=== PATIENT | female | born 1980 | race Two or more races ===

== ENCOUNTER 2022-03-04 14:30 | Outpatient (REF) | payer MEDICARE, MEDICAID, SELFPAY ==
[2022-03-04 14:45] LABS: MANUAL DIFF FLAG NO
[2022-03-04 16:04] LABS: Basophils Percent Auto 0.3 % (0-2); Eosinophils Absolute Auto 0.2 X10*3/uL (0.0-0.4); Eosinophils Percent Auto 2.2 % (0-4); Hematocrit 36.9 % (37.0-47.0); Hemoglobin 12.6 g/dl (12.0-16.0); Imm Gran Abs Auto 0.05 X10*3/uL (0.00-0.03); Imm Gran Pct Auto 0.5 % (0.0-0.4); Lymphocytes Absolute Auto 3.2 X10*3/uL (1.2-4.9); Lymphocytes Percent Auto 32.7 % (20-40); Mean Corpuscular HGB Conc 34.1 g/dl (31.0-35.0); Mean Corpuscular Hemoglobin 31.6 pg (27.0-33.0); Mean Corpuscular Volume 92.5 fL (80.0-98.0); Mean Platelet Volume 11.1 fL (9.4-12.3); Monocytes Absolute Auto 0.6 X10*3/uL (0.1-1.2); Monocytes Percent Auto 6.1 % (2-11); Neutrophils Absolute Auto 5.7 x10*3/uL (2.0-8.3); Neutrophils Percent Auto 58.2 % (45-73); Platelet Count 227 X10*3/uL (160-400); Red Blood Count 3.99 X10*6/uL (4.20-5.50); Red Cell Distribution Width 14.1 % (11.0-16.0); White Blood Count 9.8 X10*3/uL (4.8-10.8)
[2022-03-04 16:23] LABS: Alanine Aminotransferase 13 U/L (0-31); Albumin Level 3.9 g/dL (3.5-5.0); Alkaline Phosphatase 60 U/L (39-117); Anion Gap 9 (12-20); Aspartate Amino Transferase 11 U/L (5-31); Bilirubin Total 0.5 mg/dL (0.0-1.0); Blood Urea Nitrogen 12 mg/dL (9-16); Calcium 8.4 mg/dL (8.4-10.2); Carbon Dioxide 26 mmol/L (22-29); Chloride 106 mmol/L (96-108); Cholesterol 113 mg/dL; Estimated Glomerular Filt Rate > 60; Glucose Fasting 98 mg/dL (60-99); HDL Cholesterol 44 mg/dL; LDL Cholesterol Calculated 58 mg/dl; Potassium 4.4 mmol/L (3.3-5.1); Sodium 137 mmol/L (135-145); Total Protein 6.6 g/dL (6.5-8.0); Triglycerides 56 mg/dL
[2022-03-04 16:36] LABS: TSH reflex Free T4 1.62 uIU/mL (0.32-4.0)
== END 2022-03-04 14:31 | disposition home or self-care (01) ==
LOC: HO.LAB 14:30
PROVIDERS: PCP Internal Medicine; Visit Provider Internal Medicine
DX: Z00.00 Encounter for general adult medical examination without abnormal findings (principal); E55.9 Vitamin D deficiency, unspecified
CPT/HCPCS: 36415; 80053; 80061; 82306; 84443; 85025

== ENCOUNTER 2023-03-29 16:12 | Outpatient (AMB) | payer MEDICARE, MEDICAID, SELFPAY ==
[2023-03-29 16:13] VITALS: BP 130/82; PULSE 102; O2SAT 100; BMI 28.9
--- NOTE | 2023-03-29 16:13 | A.OFFPC_ITS ---
Vital Signs 03/29/23 16:13 Height 5 ft 1 in Weight 153 lb BMI 28.9 BP 130/82 Blood Pressure Location Lt brachial Position Sitting Pulse 102 H Pulse Source Pulse Oximeter Temp Source Skin Pulse Oximetry (%) 100 Oxygen Delivery Method Room Air Intake Visit Reasons: migraine, GERD Intake Note: Patient is here to follow up Waitstaff Required: No Allergies sulfamethoxazole [From BACTRIM] Allergy (Severe, Verified 03/29/23 16:22) SHORTNESS OF BREATH trimethoprim [From BACTRIM] Allergy (Severe, Verified 03/29/23 16:22) SHORTNESS OF BREATH cephalexin [From KEFLEX] Allergy (Intermediate, Verified 03/29/23 16:22) SHORTNESS OF BREATH ibuprofen [From MOTRIN] Allergy (Unknown, Verified 03/29/23 16:22) loopy feeling; giddiness Sulfa (Sulfonamide Antibiotics) Allergy (Unknown, Verified 03/29/23 16:22) anaphylaxis, rash, itchy, SOB morphine [MORPHINE] Adverse Reaction (Unknown, Verified 03/29/23 16:22) rash; sensation of giddiness; loopy feeling topiramate Adverse Reaction (Unknown, Verified 03/29/23 16:22) hallucination Medication List - Last Reconciled 03/29/23 by LINDA Vizcaino albuterol sulfate 90 mcg/actuation (Ventolin HFA) 2 puffs inhalation Q6-8H PRN 30 days budesonide-formoterol 80-4.5 mcg/actuation (Symbicort) 2 puffs inhalation BID 30 days doxepin 10 mg PO BEDTIME 30 days ipratropium-albuterol 0.5 mg-3 mg(2.5 mg base)/3 mL 3 mL inhalation Q6-8H PRN 30 days loratadine 10 mg PO DAILY PRN 30 days miscellaneous medical supply 1 ea miscellaneous DAILY nortriptyline 10 mg PO BEDTIME 30 days omeprazole 20 mg PO DAILY 30 days ondansetron 4 mg PO Q8H PRN 15 days tramadol 50 mg PO QID PRN 30 days Tobacco use date assessed: 03/29/23 HPI migraine, GERD HPI Details Patient is a 43-year-old female who presents today for a routine follow-up. Patient of Dr. Liu. Medical history significant for GERD, migraine, anxiety, asthma, insomnia, cervical disc disease. Patient reports that she is compliant with medications and denies side effects. Migraines are stable with current treatment, does not remember when the last time she had her migraine. Patient reports right-sided abdominal pain for the past couple months now. She reports intermittent right upper quadrant pain that radiates to her back and to her right lower quadrant, pain is not related to foods, she reports bad acid reflux which is not resolved with omeprazole, acid reflux makes her vomit sometime. She denies urinary symptoms. She reports history of kidney stones. She did have gallbladder removed in the past. Patient denies shortness of breath or chest pain. FORMERLY [facility] Medical History Allergic rhinitis Anxiety Asthma Cervical disc disease GERD (gastroesophageal reflux disease) Insomnia Migraine Obesity (BMI 30-39.9) Overweight (BMI 25.0-29.9) Scoliosis Surgical History History of incision and drainage History of laparoscopic cholecystectomy (~08/24/17) History of tubal ligation Hx of colonoscopy (~10/26/16) Family History Father No problems noted. Mother Hypertension Breast cancer Maternal Aunt Breast cancer Sister Breast cancer Social History Housing: House Alcohol intake: current Alcohol intake frequency: holidays/special occasions only Patient Tobacco Use Status: Current someday Tobacco user Cigarettes Per Day: 2 e-Cigarette/Vaping Use: Former Use service: No Current occupational status: disabled Cognitive needs: No Hearing needs: No Vision needs: No Questionnaire Thrive Questionnaire Date Thrive assessed: 01/06/23 AUDIT C Alcohol Use Questionnaire (AUDIT-C) 1. How often do you have a drink containing alcohol?: Never Total Score: 0 Score Reviewed/Action Taken: No JEROME-7 AMB Questionnaire JEROME-7 Date JEROME - 7 assessed: 01/06/23 Source: Developed by Drs. Uziel Raza, Loretta Julien, Chauncey Velasco and colleagues, with an educational yumiko from [employer]. Review of Systems Const Denies body aches, Denies chills, Denies fever(s) and Denies headache(s) Eyes Denies change in vision ENT Denies dizziness, Denies otalgia, Denies headache(s), Denies nasal discharge, Denies sinus pain and Denies sore throat Card Denies chest pain, Denies edema, Denies lightheadedness and Denies dyspnea Resp Denies cough and Denies dyspnea GI Reports as per HPI, Reports abdominal pain, Denies constipation, Reports heartburn, Denies diarrhea, Denies nausea and Denies vomiting Denies dysuria and Reports flank pain (Right) Musc Denies myalgias, Denies arthralgias and Denies joint swelling Skin/Breast Denies rash Neuro Denies dizziness and Denies headache(s) Physical exam (Primary Care) Vital Signs: Last Vital Signs Pulse 102 H 03/29/23 16:13 BP 130/82 03/29/23 16:13 Pulse Ox 100 03/29/23 16:13 Oxygen Delivery Method Room Air 03/29/23 16:13 BMI result Body Mass Index 28.9 Tobacco/Smoking Status: Tobacco use Status Tobacco use date assessed 03/29/23 03/29/23 16:18 Patient Tobacco Use Status Current someday Tobacco 03/29/23 16:18 e-Cigarette/Vaping Use Former Use 03/29/23 16:18 Thrive Assessment: Date of Thrive Assessment Date Thrive assessed 01/06/23 03/29/23 16:18 Const General: cooperative and no acute distress Orientation/consciousness: patient oriented x3 HENMT Head: Yes normocephalic and Yes atraumatic Ears: TM's normal bilaterally Face and sinus: Yes sinuses nontender Mouth: oropharynx normal and moist mucous membranes Throat: Yes posterior oropharynx normal Eyes General: appearance normal, both eyes and all related structures Neck Neck: Yes normal visual inspection and Yes full ROM Resp Effort & Inspection: normal respiratory effort and able to speak in complete sentences Auscultation: clear to auscultation bilaterally, no crackles, no rales, no rhonchi and no wheezes Cardio Rate: regular rate Rhythm: regular rhythm Heart sounds: S1 normal heart sound present and S2 normal heart sound present GI Palpation (GI): Soft to palpation, not firm, Tenderness to palpation present (GI) in the epigastrum and in the RUQ; with no rebound tenderness, no guarding, not rigid and no hepatosplenomegaly Auscultation: normal bowel sounds General: No CVA tenderness Back/Spine/Pelvis Back: No CVA tenderness Thoracic/Lumbar Spine: paraspinal muscle tenderness (Right lumbar aspect), No thoracic spinal tenderness and No lumbar spinal tenderness Skin General skin exam: no rashes or lesions noted Neuro General: patient oriented x3 Gait exam (Neuro): Normal gait present Extrem General: Yes full ROM and No edema Assessment and Plan Assessment & Plan (1) Right sided abdominal pain: Code(s): R10.9 - Unspecified abdominal pain Plan: Patient report right upper quadrant/epigastric pain that radiate to her back and right lower quadrant for the past couple months, physical exam revealed right upper quadrant tenderness and epigastric tenderness, no rebound tenderness. Patient reports history of kidney stones in the past. She denies any urinary symptoms. She did have gallbladder removed in the past. Will obtain blood work and ultrasound of her abdomen. Signs and symptoms reviewed when to notify provider or go to the emergency department. Patient agreed with the plan. (2) Insomnia: Code(s): G47.00 - Insomnia, unspecified Qualifiers: Insomnia type: unspecified Qualified Code(s): G47.00 - Insomnia, unspecified Plan: Reinforced sleep hygiene Stable with doxepin at bedtime (3) Asthma: Code(s): J45.909 - Unspecified asthma, uncomplicated Qualifiers: Asthma severity: moderate Asthma persistence: persistent Asthma complication type: uncomplicated Qualified Code(s): J45.40 - Moderate persistent asthma, uncomplicated Plan: Stable Continue current inhalers as prescribed (4) Migraine: Code(s): G43.909 - Migraine, unspecified, not intractable, without status migrainosus Qualifiers: Migraine type: unspecified Status migrainosus presence: without status migrainosus Intractability: not intractable Qualified Code(s): G43.909 - M igraine, unspecified, not intractable, without status migrainosus Plan: Stable with nortriptyline 10 mg at bedtime, Zofran every 8 hours p.r.n. Patient does not remember when the last time she had migraine headache (5) Gastroesophageal reflux disease: Code(s): K21.9 - Gastro-esophageal reflux disease without esophagitis Qualifiers: Esophagitis presence: without esophagitis Qualified Code(s): K21.9 - Gastro-esophageal reflux disease without esophagitis Plan: Increase omeprazole to 1 capsule b.i.d. Avoid GERD trigger foods Do not lay down 2-3 hours after evening meal Will refer to GI for an evaluation and treatment Patient agreed with the plan Plan Follow-up with PCP in 3 months or sooner as needed Orders: Orders Comprehensive Met. Panel Today R10.9 - Unspecified abdominal pain Complete Blood Count Auto Diff Today R10.9 - Unspecified abdominal pain US abdomen complete Today R10.9 - Unspecified abdominal pain Referrals Gastroenterology Referral K21.9 - Gastro-esophageal reflux disease without esophagitis Medications: Changed From omeprazole 20 mg PO DAILY 30 days 30 caps 1RF K21.9 - Gastro-esophageal reflux disease without esophagitis To omeprazole 20 mg PO BID 60 days 120 caps 1RF K21.9 - Gastro-esophageal reflux disease without esophagitis Coding Level of Care Code Est Pt Level 4 (85864) Diagnoses Right sided abdominal pain R10.9 Insomnia G47.00 Insomnia type: unspecified Asthma J45.40 Asthma severity: moderate Asthma persistence: persistent Asthma complication type: uncomplicated Migraine G43.909 Migraine type: unspecified Status migrainosus presence: without status migrainosus Intractability: not intractable Gastroesophageal reflux disease K21.9 Esophagitis presence: without esophagitis
== END 2023-03-29 16:37 | disposition home or self-care (01) ==
PROVIDERS: PCP Internal Medicine; Visit Provider Nurse Practitioner Family
DX: J45.40 Moderate persistent asthma, uncomplicated (principal); G43.909 Migraine, unspecified, not intractable, without status migrainosus; K21.9 Gastro-esophageal reflux disease without esophagitis; G47.00 Insomnia, unspecified; R10.9 Unspecified abdominal pain
CPT/HCPCS: 99214

== ENCOUNTER 2023-07-20 14:22 | Outpatient (AMB) | payer MEDICARE, MEDICAID, SELFPAY ==
--- NOTE | 2023-07-20 14:30 | MHC.OFFVIS ---
Intake Vital Signs 07/20/23 14:43 Height 5 ft 1 in Weight 153 lb 6 oz BMI 29.0 BP 131/79 Blood Pressure Location Lt brachial Position Sitting Pulse 80 Intake Visit Reasons: bilateral breast pain, ? mastitis Intake Note: Patient is seen in office for evaluation and treatment of bilateral breast pain possible mastitis. Patient c/o: right side is more painful, onset one month, unable to lay down due to pain, has tried warm compress, admits to redness, discharge rt breast, feel hard to the touch Stockroom Keeper Required: No Accompanied by: Self / Same As Patient Allergies sulfamethoxazole [From BACTRIM] Allergy (Severe, Verified 07/20/23 14:35) SHORTNESS OF BREATH trimethoprim [From BACTRIM] Allergy (Severe, Verified 07/20/23 14:35) SHORTNESS OF BREATH cephalexin [From KEFLEX] Allergy (Intermediate, Verified 07/20/23 14:35) SHORTNESS OF BREATH ibuprofen [From MOTRIN] Allergy (Unknown, Verified 07/20/23 14:35) loopy feeling; giddiness Sulfa (Sulfonamide Antibiotics) Allergy (Unknown, Verified 07/20/23 14:35) anaphylaxis, rash, itchy, SOB morphine [MORPHINE] Adverse Reaction (Unknown, Verified 07/20/23 14:35) rash; sensation of giddiness; loopy feeling topiramate Adverse Reaction (Unknown, Verified 07/20/23 14:35) hallucination HPI HPI Comments History of Present Illness Details 43-year-old female patient with a long history of bilateral breast pain presenting for evaluation of possible mastitis. She has a prior history of breast abscess and is concerned that the abscess is returning. Her family history is significant for her mother having breast cancer. She reports pain mainly around the nipples bilaterally. She denies any skin redness but does have occasional whitish discharge from the nipples. The pain increases when wearing her bra. She denies any fever or chills. She has not undergone mammography for several years due to the pain. FORMERLY [facility] Medical History Allergic rhinitis Obesity (BMI 30-39.9) Overweight (BMI 25.0-29.9) Insomnia Anxiety Migraine Asthma GERD (gastroesophageal reflux disease) Scoliosis Cervical disc disease Surgical History History of incision and drainage Hx of colonoscopy (~10/26/16) History of laparoscopic cholecystectomy (~08/24/17) History of tubal ligation Family History Father No problems noted. Mother Hypertension Breast cancer Maternal Aunt Breast cancer Sister Breast cancer Social History Housing: House Alcohol intake: current Alcohol intake frequency: holidays/special occasions only Patient Tobacco Use Status: Current someday Tobacco user Cigarettes Per Day: 2 e-Cigarette/Vaping Use: Former Use service: No Current occupational status: disabled Cognitive needs: No Hearing needs: No Vision needs: No Review of Systems Const All systems reviewed & are unremarkable except as noted in HPI and below Reports nipple discharge Skin/Breast Denies breast swelling, Denies breast skin changes, Reports breast pain, Denies breast mass, Reports nipple discharge and Denies erythema Physical Exam Vital Signs: Last Vital Signs Pulse 80 07/20/23 14:43 BP 131/79 07/20/23 14:43 BMI result Body Mass Index 29.0 Const General: comfortable Nutritional Appearance: well nourished Orientation/consciousness: patient oriented x3 Limitations: no limitations HEENT Head: Yes normocephalic and Yes atraumatic Ears: hearing grossly normal bilaterally Neck Neck: Yes normal visual inspection Chest Other: Left breast: No skin change, no nipple retraction, no nipple discharge, no palpable mass, no enlarged lymph nodes, tenderness throughout the breast but especially centrally around the nipple-areolar complex. Right breast: No skin change, no nipple retraction, no nipple discharge, no palpable mass, no enlarged lymph nodes, tenderness throughout the breast but especially centrally along the nipple-areolar complex Resp Effort & Inspection: normal respiratory effort, no audible wheezes, no cough and no respiratory distress GI Inspection: Yes normal to inspection Skin Other: Warm, dry, no rash Neuro General: patient oriented x3 Extrem General: Yes no clubbing, cyanosis or edema Assessment & Plan Assessment & Plan (1) Mastodynia: Code(s): N64.4 - Mastodynia (2) Family history of breast cancer: Code(s): Z80.3 - Family history of malignant neoplasm of breast Plan Patient with persistent history of breast pain bilaterally which is affecting her daily life style. Examination reveals no suspicious findings in either breast. She is due for mammography and I therefore recommended a diagnostic mammogram and bilateral ultrasounds. I recommended starting low-dose tamoxifen for approximately 3 months after which the medication will be stopped. I recommended she return following the mammogram and ultrasound studies to review the results and evaluate the response to the tamoxifen. She should call sooner for any new concerns. Orders: Orders MM diagnostic mammo BI Today N64.4 - Mastodynia, Z80.3 - Family history of malignant neoplasm of breast US breast LT complete Today N64.4 - Mastodynia, Z80.3 - Family history of malignant neoplasm of breast US breast RT complete Today N64.4 - Mastodynia, Z80.3 - Family history of malignant neoplasm of breast Medications: New tamoxifen 10 mg PO DAILY 90 tabs 0RF N64.4 - Mastodynia Coding Level of Care Code New Pt Level 4 (51420) Diagnoses Mastodynia N64.4 Family history of breast cancer Z80.3
[2023-07-20 14:43] VITALS: BP 131/79; PULSE 80; BMI 29.0
== END 2023-07-20 14:59 | disposition home or self-care (01) ==
PROVIDERS: PCP Internal Medicine; Visit Provider Surgery
DX: N64.4 Mastodynia (principal); Z80.3 Family history of malignant neoplasm of breast
CPT/HCPCS: 99204

== ENCOUNTER → 2023-07-20 14:22 | Outpatient (BNVA) | payer MEDICARE, MEDICAID, SELFPAY | PROVIDERS: PCP Internal Medicine; Visit Provider Surgery | DX: N64.4 Mastodynia (principal); Z80.3 Family history of malignant neoplasm of breast | CPT/HCPCS: 99202 ==

== ENCOUNTER → 2023-07-28 13:27 | Outpatient (BNVA) | payer MEDICARE, MEDICAID, SELFPAY | PROVIDERS: PCP Internal Medicine; Visit Provider Surgery | DX: N64.4 Mastodynia (principal); Z80.3 Family history of malignant neoplasm of breast | CPT/HCPCS: 99212 ==

== ENCOUNTER 2023-07-28 13:28 | Outpatient (AMB) | payer MEDICARE, MEDICAID, SELFPAY ==
--- NOTE | 2023-07-28 13:28 | A.OFFVIS_ITS ---
Intake Vital Signs 07/28/23 13:35 Height 5 ft 1 in Weight 152 lb 8 oz BMI 28.8 BP 116/74 Blood Pressure Location Rt brachial Position Sitting Pulse 84 Pulse Source Pulse Oximeter Temp 96.7 F L Temp Source Tympanic Pulse Oximetry (%) 97 Oxygen Delivery Method Room Air Intake Visit Reasons: breast infection Property Management Supervisor Required: No Allergies sulfamethoxazole [From BACTRIM] Allergy (Severe, Verified 07/28/23 13:35) SHORTNESS OF BREATH trimethoprim [From BACTRIM] Allergy (Severe, Verified 07/28/23 13:35) SHORTNESS OF BREATH cephalexin [From KEFLEX] Allergy (Intermediate, Verified 07/28/23 13:35) SHORTNESS OF BREATH ibuprofen [From MOTRIN] Allergy (Unknown, Verified 07/28/23 13:35) loopy feeling; giddiness Sulfa (Sulfonamide Antibiotics) Allergy (Unknown, Verified 07/28/23 13:35) anaphylaxis, rash, itchy, SOB tamoxifen Adverse Reaction (Intermediate, Verified 07/28/23 13:35) Itching morphine [MORPHINE] Adverse Reaction (Unknown, Verified 07/28/23 13:35) rash; sensation of giddiness; loopy feeling topiramate Adverse Reaction (Unknown, Verified 07/28/23 13:35) hallucination Medication List - Last Reconciled 07/28/23 by Rashaun Michelle MD, FACS, [facility] albuterol sulfate 90 mcg/actuation (Ventolin HFA) 2 puffs inhalation Q6-8H PRN 30 days budesonide-formoterol 80-4.5 mcg/actuation (Symbicort) 2 puffs inhalation BID 30 days ipratropium-albuterol 0.5 mg-3 mg(2.5 mg base)/3 mL 3 mL inhalation Q6-8H PRN 30 days tramadol 50 mg PO QID PRN 30 days HPI HPI Comments History of Present Illness Details The patient is a 43-year-old woman who contacted the office requesting antibiotics or other treatment for her ongoing breast pain. She was last seen by Dr. 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 Patient reports drainage and pain that is worse with heating pads and Tylenol. She denies any recent trauma but notes that she had a breast abscess drain in the past. Patient was placed on tamoxifen as noted but states she did not tolerated and it made her pain worse. Given the concern for possible abscess, I requested that she come in for evaluation. She states that the right side is worse than the left and denies any fevers. She does report subjective drainage from her nipples bilaterally [facility] Medical History Allergic rhinitis Obesity (BMI 30-39.9) Overweight (BMI 25.0-29.9) Insomnia Anxiety Migraine Asthma GERD (gastroesophageal reflux disease) Scoliosis Cervical disc disease Surgical History History of incision and drainage Hx of colonoscopy (~10/26/16) History of laparoscopic cholecystectomy (~08/24/17) History of tubal ligation Family History Father No problems noted. Mother Hypertension Breast cancer Maternal Aunt Breast cancer Sister Breast cancer Social History Housing: House Alcohol intake: current Alcohol intake frequency: holidays/special occasions only Patient Tobacco Use Status: Current someday Tobacco user Cigarettes Per Day: 2 e-Cigarette/Vaping Use: Former Use service: No Current occupational status: disabled Cognitive needs: No Hearing needs: No Vision needs: No Review of Systems Const All systems reviewed & are unremarkable except as noted in HPI and below Physical Exam Vital Signs: Last Vital Signs Temp 96.7 F L 07/28/23 13:35 Pulse 84 07/28/23 13:35 BP 116/74 07/28/23 13:35 Pulse Ox 97 07/28/23 13:35 Oxygen Delivery Method Room Air 07/28/23 13:35 BMI result Body Mass Index 28.8 On exam, the patient is at times tearful but is nontoxic She is having no respiratory difficulty Glove Cutter is present for the entire exam Left breast has some minimal nodularity/fibrocystic change in the left upper outer quadrant but no skin redness, nipple drainage, nipple or skin retraction, scale, fluctuance or discrete area to suggest abscess. Patient reports tenderness in the left upper outer quadrant and in the nipple-areolar complex. No discharge was observed nor expressed in the nipple Right breast has similar symmetric nodularity verses the left and has no skin r edness, nipple scale/drainage, nipple or skin retraction and no fluctuant area to suggest abscess is noted on today's exam. No discharge scale was observed nor expressed. In comparison to Dr. Tomas is a notes, the breast exam seems unchanged. Assessment & Plan Assessment & Plan (1) Mastodynia: Code(s): N64.4 - Mastodynia (2) Family history of breast cancer: Code(s): Z80.3 - Family history of malignant neoplasm of breast Plan I reassured the patient that I do not appreciate an abscess on the exam today and since he had is exacerbating her symptoms, she could try ice packs. She is set up with Dr. Tomas or 1 of the other breast surgeons for next week. We discussed pain management options including Tylenol and ibuprofen and I explained that we do not routinely treat pain with antibiotics as requested. I would also hold off of any narcotics since there is no definitive pain source. Patient had her questions answered and was in agreement with this plan. Coding Level of Care Code Est Pt Level 4 (88959) Diagnoses Mastodynia N64.4 Family history of breast cancer Z80.3
[2023-07-28 13:35] VITALS: BP 116/74; PULSE 84; TEMP 35.9; O2SAT 97; BMI 28.8
== END 2023-07-28 14:01 | disposition home or self-care (01) ==
PROVIDERS: PCP Internal Medicine; Visit Provider Surgery
DX: N64.4 Mastodynia (principal); Z80.3 Family history of malignant neoplasm of breast
CPT/HCPCS: 99214

== ENCOUNTER 2024-01-23 11:05 | Outpatient (AMB) | payer MEDICARE, MEDICAID, SELFPAY ==
[2024-01-23 11:07] VITALS: BP 140/68; PULSE 85; O2SAT 97; BMI 28.0
--- NOTE | 2024-01-23 11:07 | A.OFFPC_ITS ---
Vital Signs 01/23/24 11:07 Height 5 ft 1 in Weight 148 lb BMI 28.0 BP 140/68 H Blood Pressure Location Lt brachial Position Sitting Pulse 85 Pulse Source Pulse Oximeter Pulse Oximetry (%) 97 Oxygen Delivery Method Room Air Intake Visit Reasons: Med Follow Up Intake Note: Patient is here to follow up on medication follow up. Emergency Vehicle Technician Required: No Allergies sulfamethoxazole [From BACTRIM] Allergy (Severe, Verified 04/01/24 15:11) SHORTNESS OF BREATH trimethoprim [From BACTRIM] Allergy (Severe, Verified 04/01/24 15:11) SHORTNESS OF BREATH cephalexin [From KEFLEX] Allergy (Intermediate, Verified 04/01/24 15:11) SHORTNESS OF BREATH duloxetine Allergy (Intermediate, Verified 04/01/24 15:11) Back Pain ibuprofen [From MOTRIN] Allergy (Unknown, Verified 04/01/24 15:11) loopy feeling; giddiness Sulfa (Sulfonamide Antibiotics) Allergy (Unknown, Verified 04/01/24 15:11) anaphylaxis, rash, itchy, SOB gabapentin Adverse Reaction (Intermediate, Verified 04/01/24 15:11) Hallucinations tamoxifen Adverse Reaction (Intermediate, Verified 04/01/24 15:11) Itching morphine [MORPHINE] Adverse Reaction (Unknown, Verified 04/01/24 15:11) rash; sensation of giddiness; loopy feeling topiramate Adverse Reaction (Unknown, Verified 04/01/24 15:11) hallucination Medication List - Last Reconciled 04/02/24 by Arnold Liu MD albuterol sulfate 90 mcg/actuation (Ventolin HFA) 2 puffs inhalation Q6-8H PRN 30 days amoxicillin-pot clavulanate 600-42.9 mg/5 mL (Augmentin ES-) 7.5 mL PO Q12H 10 days benzonatate 200 mg PO BID-TID PRN budesonide-formoterol 80-4.5 mcg/actuation (Symbicort) 2 puffs inhalation BID 30 days jnsibpyxam-iqekipvwccbos-thay 50-300-40 mg (Fioricet) 1 cap PO Q8H PRN ipratropium-albuterol 0.5 mg-3 mg(2.5 mg base)/3 mL 3 mL inhalation Q6-8H PRN 30 days lorazepam 0.5 mg PO BID PRN 5 days tramadol 50 mg PO QID PRN 30 days Tobacco use date assessed: 01/23/24 Dental Screening Dental Screen Date: 01/23/24 Did you have a dental visit in the last 12 months?: No Did you have a dental problem in the last 6 months where you did not have access to dental care?: No HPI Med Follow Up HPI Details Patient comes in today for her follow up visit - was last seen by me over a year ago in December 2022 States that she has been experiencing increased pain over her lower back lately and that her current meds are not helping much She denies any recent injury or trauma to her lower back She denies any headaches or dizziness Denies any chest pains, no increased SOB No nausea/vomiting, no abdominal pain No change in bowel habits noted Would also like to get a refill on her Lorazepam today due to her increasing anxiety lately [facility] Medical History Allergic rhinitis Obesity (BMI 30-39.9) Overweight (BMI 25.0-29.9) Insomnia Anxiety Migraine Asthma GERD (gastroesophageal reflux disease) Scoliosis Cervical disc disease Surgical History History of incision and drainage Hx of colonoscopy (~10/26/16) History of laparoscopic cholecystectomy (~08/24/17) History of tubal ligation Family History Father No problems noted. Mother Hypertension Breast cancer Maternal Aunt Breast cancer Sister Breast cancer Social History Housing: House Alcohol intake: current Alcohol intake frequency: does not drink Patient Tobacco Use Status: Former Tobacco user Cigarettes Per Day: 2 e-Cigarette/Vaping Use: Former Use service: No Current occupational status: disabled Cognitive needs: No Hearing needs: No Vision needs: No Questionnaire PHQ-9 Over the last 2 weeks, how often have you been bothered by any of the following problems? 1. Little interest or pleasure in doing things: not at all 2. Feeling down, depressed, or hopeless: not at all 3. Trouble falling or staying asleep, or sleeping too much: not at all 4. Feeling tired or having little energy: not at all 5. Poor appetite or overeating: not at all 6. Feeling bad about yourself - or that you are a failure or have let yourself or your family down: not at all 7. Trouble concentrating on things, such as reading the newspaper or watching television: not at all 8. Moving or speaking so slowly that other people could have noticed. Or the opposite - being so fidgety or restless that you have been moving around a lot more than usual: not at all 9. Thoughts that you would be better off or of hurting yourself in some way: not at all Total score: 0 Depression Screening Interpretation: Negative Depression Screening Done: Yes 57496 - PHQ-9 Billing: Yes Source: Developed by Drs. Uziel Raza, Loretta Julien, Chauncey Velasco and colleagues, with an educational yumiko from [employer]. Thrive Questionnaire Date Thrive assessed: 01/23/24 I am a: Patient What is your living situation today?: I have a steady place to live Within the past 12 months, did the food you bought not last and you didn't have the money to get more?: Never true Within the past 12 months, did you worry whether your food would run out before you got money to buy more?: Never true Do you have trouble paying for medicines?: No Do you have trouble getting transportation to medical appointments?: No Do you have trouble paying your heating and electricity bill?: No Do you have trouble taking care of your child, family member or friend?: No Do you have trouble with day-to-day activities such as bathing, preparing meals, shopping, managing finances, etc.?: No Are you currently unemployed and looking for a job?: No Are you interested in more education?: No Currently or been in a relationship where the following occur: no concerns reported THRIVE Score: 0 AUDIT C Alcohol Use Questionnaire (AUDIT-C) 1. How often do you have a drink containing alcohol?: Never 3. How often do you have six or more drinks on one occasion?: Never Total Score: 0 Score Reviewed/Action Taken: Yes JEROME-7 AMB Questionnaire JEROME-7 Date JEROME - 7 assessed: 01/06/23 Source: Developed by Drs. Uziel Raza, Loretta Julien, Chauncey Velasco and colleagues, with an educational yumiko from [employer]. Review of Systems Const Denies chills, Reports fatigue, Denies fever(s) and Denies headache(s) ENT Denies dysphagia, Denies dizziness, Denies otalgia, Denies headache(s), Reports neck pain (chronic ), Denies odynophagia and Denies sore throat Card Denies chest pain, Denies palpitations and Denies dyspnea Resp Denies chest congestion, Denies cough and Denies dyspnea GI Denies abdominal pain, Denies constipation, Denies dysphagia, Denies diarrhea, Denies nausea, Denies odynophagia and Denies vomiting Denies difficulty voiding, Denies nocturia, Denies dysuria and Denies urinary urgency Musc Reports back pain (increasing lately) and Reports neck pain (chronic ) Skin/Breast Denies rash Neuro Denies dizziness and Denies headache(s) Psych Reports anxiety (increasing) Endo Reports fatigue and Denies palpitations Physical exam (Primary Care) Vital Signs: Last Vital Signs Pulse 85 01/23/24 11:07 BP 140/68 H 01/23/24 11:07 Pulse Ox 97 01/23/24 11:07 Oxygen Delivery Method Room Air 01/23/24 11:07 BMI result Body Mass Index 28.0 Tobacco/Smoking Status: Tobacco use Status Tobacco use date assessed 01/23/24 01/23/24 11:09 Patient Tobacco Use Status Current someday Tobacco 01/23/24 11:09 e-Cigarette/Vaping Use Former Use 01/23/24 11:09 Depression Screening Interpretation: Negative Thrive Assessment: Date of Thrive Assessment Date Thrive assessed 01/06/23 01/23/24 11:09 Currently or been in a relationship where the following occur: no concerns reported Const General: no acute distress and alert HENMT Throat: Yes posterior oropharynx normal and Yes tonsils normal (no TP congestion) Neck Neck: Yes no lymphadenopathy and Yes supple Thyroid: Thyroid normal Resp Auscultation: clear to auscultation bilaterally, no rales and no wheezes Cardio Rate: regular rate Rhythm: regular rhythm Heart sounds: no murmurs GI Palpation (GI): Soft to palpation and nontender Auscultation: normal bowel sounds General: Yes no CVA tenderness Back/Spine/Pelvis Back: no CVA tenderness Cervical Spine: Cervical spine tenderness Thoracic/Lumbar Spine: lumbar spinal tenderness Extrem General: Yes no clubbing, cyanosis or edema Assessment and Plan Assessment & Plan (1) Low back pain: Code(s): M54.50 - Low back pain, unspecified Qualifiers: Chronicity: unspecified Back pain laterality: midline Sciatica presence: without sciatica Qualified Code(s): M54.50 - Low back pain, unspecified Plan: Will send patient for lumbar spine x-rays TEO for further evaluation Continue Tramadol 50 mg TID PRN for pain Will also start her on a trial of Duloxetine 30 mg BID Can consider also physical therapy but will wait and see how her x-rays come out first (2) Asthma: Code(s): J45.909 - Unspecified asthma, uncomplicated Qualifiers: Asthma severity: moderate Asthma persistence: persistent Asthma complication type: uncomplicated Qualified Code(s): J45.40 - Moderate persistent asthma, uncomplicated Plan: Stable lately Continue Symbicort 80-4.5 mcg 2 inhalations BID and Albuterol HFA 2 inhalations Q 6 hours PRN Patient also uses Duoneb solution via nebulizer for updraft treatments Q 6 hours PRN (3) Allergic rhinitis: Code(s): J30.9 - Allergic rhinitis, unspecified Qualifiers: Allergic rhinitis trigger: unspecified Allergic rhinitis seasonality: unspecified Qualified Code(s): J30.9 - Allergic rhinitis, unspecified Plan: Continue Loratadine 10 mg QD PRN (4) Cervical disc disease: Code(s): M50.90 - Cervical disc disorder, unspecified, unspecified cervical region Plan: Continue Tramadol 50 mg TID PRN (5) Gastroesophageal reflux disease: Code(s): K21.9 - Gastro-esophageal reflux disease without esophagitis Qualifiers: Esophagitis presence: without esophagitis Qualified Code(s): K21.9 - Gastro-esophageal reflux disease without esophagitis Plan: Dietary restrictions reinforced Upper GI series done back in 2017 revealed (+) mild gastroesophageal reflux with mild prominence of the gastric rugal folds along the greater curvature of the stomach suggestive of gastritis She was referred to GI last year but patient failed to keep her appointment Continue Omeprazole 20 mg QD (6) Insomnia: Code(s): G47.00 - Insomnia, unspecified Qualifiers: Insomnia type: unspecified Qualified Code(s): G47.00 - Insomnia, unspecified Plan: Sleep hygiene reinforced Continue Doxepin 10 mg Q HS PRN (7) Anxiety: Code(s): F41.9 - Anxiety disorder, unspecified Plan: Continue Doxepin 10 mg Q HS PRN and Lorazepam 0.5 mg BID PRN (Rx refilled) (8) Overweight (BMI 25.0-29.9): Code(s): E66.3 - Overweight Plan: Reinforced diet/exercise as tolerated/lose weight Plan Follow up as scheduled in March 2024 Orders: Orders XR lumbar spine 2-3V 01/23/24 M54.50 - Low back pain, unspecified Medications: New duloxetine 30 mg PO BID 60 caps 2RF 30 days Changed From lorazepam 0.5 mg PO BID PRN To lorazepam 0.5 mg PO BID PRN 10 tabs 0RF anxiety 5 days Coding Level of Care Code Est Pt Level 4 (23452) Diagnoses Midline low back pain without sciatica, unspecified chronicity M54.50 Chronicity: unspecified Back pain laterality: midline Sciatica presence: without sciatica Moderate persistent asthma without complication J45.40 Asthma severity: moderate Asthma persistence: persistent Asthma complication type: uncomplicated Allergic rhinitis, unspecified seasonality, unspecified trigger J30.9 Allergic rhinitis trigger: unspecified Allergic rhinitis seasonality: unspecified Cervical disc disease M50.90 Gastroesophageal reflux disease without esophagitis K21.9 Esophagitis presence: without esophagitis Insomnia, unspecified type G47.00 Insomnia type: unspecified Anxiety F41.9 Overweight (BMI 25.0-29.9) E66.3
== END 2024-01-23 11:48 | disposition home or self-care (01) ==
PROVIDERS: PCP Internal Medicine; Visit Provider Internal Medicine
DX: M54.50 Low back pain, unspecified (principal); J45.40 Moderate persistent asthma, uncomplicated; J30.9 Allergic rhinitis, unspecified; M50.90 Cervical disc disorder, unspecified, unspecified cervical region; K21.9 Gastro-esophageal reflux disease without esophagitis; G47.00 Insomnia, unspecified; F41.9 Anxiety disorder, unspecified; E66.3 Overweight
CPT/HCPCS: 99214

== ENCOUNTER 2024-04-01 14:47 | Outpatient (AMB) | payer MEDICARE, MEDICAID, SELFPAY ==
--- NOTE | 2024-04-01 14:49 | MHC.PC.OV ---
Vital Signs 04/01/24 14:51 Height 5 ft 1 in Weight 147 lb 4 oz BMI 27.8 BP 130/72 Blood Pressure Location Lt brachial Position Sitting Pulse 91 Pulse Source Pulse Oximeter Pulse Oximetry (%) 98 Oxygen Delivery Method Room Air Intake Visit Reasons: Med F/U Intake Note: Patient is here to follow up on Asthma, Anxiety, Cervical Disc Disease. Hotel Services Supervisor Required: No Inker: Not Required per policy Accompanied by: Self / Same As Patient Allergies sulfamethoxazole [From BACTRIM] Allergy (Severe, Verified 04/01/24 15:11) SHORTNESS OF BREATH trimethoprim [From BACTRIM] Allergy (Severe, Verified 04/01/24 15:11) SHORTNESS OF BREATH cephalexin [From KEFLEX] Allergy (Intermediate, Verified 04/01/24 15:11) SHORTNESS OF BREATH duloxetine Allergy (Intermediate, Verified 04/01/24 15:11) Back Pain ibuprofen [From MOTRIN] Allergy (Unknown, Verified 04/01/24 15:11) loopy feeling; giddiness Sulfa (Sulfonamide Antibiotics) Allergy (Unknown, Verified 04/01/24 15:11) anaphylaxis, rash, itchy, SOB gabapentin Adverse Reaction (Intermediate, Verified 04/01/24 15:11) Hallucinations tamoxifen Adverse Reaction (Intermediate, Verified 04/01/24 15:11) Itching morphine [MORPHINE] Adverse Reaction (Unknown, Verified 04/01/24 15:11) rash; sensation of giddiness; loopy feeling topiramate Adverse Reaction (Unknown, Verified 04/01/24 15:11) hallucination Medication List - Last Reconciled 04/01/24 by Arnold Liu MD albuterol sulfate 90 mcg/actuation (Ventolin HFA) 2 puffs inhalation Q6-8H PRN 30 days benzonatate 200 mg PO BID-TID PRN budesonide-formoterol 80-4.5 mcg/actuation (Symbicort) 2 puffs inhalation BID 30 days ipratropium-albuterol 0.5 mg-3 mg(2.5 mg base)/3 mL 3 mL inhalation Q6-8H PRN 30 days lorazepam 0.5 mg PO BID PRN 5 days tramadol 50 mg PO QID PRN 30 days Tobacco use date assessed: 04/01/24 Dental Screening Dental Screen Date: 01/23/24 HPI Med F/U HPI Details Patient comes in today for her follow up visit States that she has been experiencing increased headaches lately Has also been experiencing increased pain over the back of her neck for the past couple of weeks now Denies any recent injury or trauma to her neck States that she went to a walk-in clinic on [facility] in [place] last week and was prescribed some Percocet, which she states helped a lot with her headaches and neck pain Also reports increasing nasal and sinus congestion lately - feels that her allergies are getting worse as she has tried all of the OTC allergy meds that she could get, including Zyrtec, Claritin, Caitlyn and Flonase nasal spray but states that none of them helped much Relates also (+) mild sore throat at times She denies any fever; denies any dizziness Denies any chest pains, no increased SOB No nausea/vomiting, still has on and off abdominal pain (chronic) but states that her stomach has not been bothering her too much lately No change in bowel habits noted Needs her inhalers Rx refilled PFSH Medical History Allergic rhinitis Obesity (BMI 30-39.9) Overweight (BMI 25.0-29.9) Insomnia Anxiety Migraine Asthma GERD (gastroesophageal reflux disease) Scoliosis Cervical disc disease Surgical History History of incision and drainage Hx of colonoscopy (~10/26/16) History of laparoscopic cholecystectomy (~08/24/17) History of tubal ligation Family History Father No problems noted. Mother Hypertension Breast cancer Maternal Aunt Breast cancer Sister Breast cancer Social History Housing: House Alcohol intake: current Alcohol intake frequency: does not drink Patient Tobacco Use Status: Former Tobacco user Cigarettes Per Day: 2 e-Cigarette/Vaping Use: Former Use service: No Current occupational status: disabled Cognitive needs: No Hearing needs: No Vision needs: No Questionnaire PHQ-9 Over the last 2 weeks, how often have you been bothered by any of the following problems? 1. Little interest or pleasure in doing things: not at all 2. Feeling down, depressed, or hopeless: not at all 3. Trouble falling or staying asleep, or sleeping too much: not at all 4. Feeling tired or having little energy: not at all 5. Poor appetite or overeating: not at all 6. Feeling bad about yourself - or that you are a failure or have let yourself or your family down: not at all 7. Trouble concentrating on things, such as reading the newspaper or watching television: not at all 8. Moving or speaking so slowly that other people could have noticed. Or the opposite - being so fidgety or restless that you have been moving around a lot more than usual: not at all 9. Thoughts that you would be better off or of hurting yourself in some way: not at all Total score: 0 Depression Screening Interpretation: Negative Depression Screening Done: Yes 11374 - PHQ-9 Billing: Yes Source: Developed by Drs. Uziel Raza, Loretta Julien, Chauncey Velasco and colleagues, with an educational yumiko from [employer]. Thrive Questionnaire Date Thrive assessed: 04/01/24 I am a: Patient What is your living situation today?: I have a steady place to live Within the past 12 months, did the food you bought not last and you didn't have the money to get more?: Never true Within the past 12 months, did you worry whether your food would run out before you got money to buy more?: Never true Do you have trouble paying for medicines?: No Do you have trouble getting transportation to medical appointments?: No Do you have trouble paying your heating and electricity bill?: No Do you have trouble taking care of your child, family member or friend?: No Do you have trouble with day-to-day activities such as bathing, preparing meals, shopping, managing finances, etc.?: No Are you currently unemployed and looking for a job?: No Are you interested in more education?: No Currently or been in a relationship where the following occur: No concerns reported THRIVE Score: 0 AUDIT C Alcohol Use Questionnaire (AUDIT-C) 1. How often do you have a drink containing alcohol?: Never 3. How often do you have six or more drinks on one occasion?: Never Total Score: 0 Score Reviewed/Action Taken: Yes JEROME-7 AMB Questionnaire JEROME-7 Date JEROME - 7 assessed: 04/01/24 Feeling nervous, anxious, or on edge: 0 = Not at all Not being able to stop or control worryin = Not at all Worrying too much about different things: 0 = Not at all Trouble relaxin = Not at all Being so restless that it is hard to sit still: 0 = Not at all Becoming easily annoyed or irritable: 0 = Not at all Feeling afraid as if something awful might happen: 0 = Not at all Total JEROME-7 score (0-4 normal; 5-9 mild; 10-14 moderate; 15-21 severe): 0 Source: Developed by Drs. Uziel Raza, Loretta Julien, Chauncey Velasco and colleagues, with an educational yumiko from [employer]. Review of Systems Const Denies chills, Reports fatigue, Denies fever(s) and Reports headache(s) (recurrent lately) Eyes Denies blurry vision ENT Denies dysphagia, Denies dizziness, Denies otalgia, Reports headache(s) (recurrent lately), Reports nasal congestion, Reports neck pain (chronic - increased lately), Denies odynophagia, Reports sinus pain (mild), Reports sinus pressure and Reports sore throat (mild) Card Denies chest pain, Denies palpitations and Denies dyspnea Resp Denies chest congestion, Denies cough and Denies dyspnea GI Denies abdominal pain, Denies constipation, Denies dysphagia, Denies diarrhea, Reports nausea (associated with headaches), Denies odynophagia and Denies vomiting Denies difficulty voiding, Denies nocturia, Denies dysuria and Denies urinary urgency Musc Reports back pain (on and off) and Reports neck pain (chronic - increased lately) Skin/Breast Details: painful bruising on the left thigh and knee Denies rash Neuro Denies dizziness and Reports headache(s) (recurrent lately) Endo Reports fatigue and Denies palpitations Physical exam (Primary Care) Vital Signs: Last Vital Signs Pulse 91 04/01/24 14:51 BP 130/72 04/01/24 14:51 Pulse Ox 98 04/01/24 14:51 Oxygen Delivery Method Room Air 04/01/24 14:51 BMI result Body Mass Index 27.8 Tobacco/Smoking Status: Tobacco use Status Tobacco use date assessed 04/01/24 04/01/24 14:57 Patient Tobacco Use Status Former Tobacco user 04/01/24 14:57 e-Cigarette/Vaping Use Former Use 04/01/24 14:57 PHQ-9: PHQ-9 Score PHQ-9: Total score 0 04/01/24 14:57 Depression Screening Interpretation: Negative Thrive Assessment: Date of Thrive Assessment Date Thrive assessed 04/01/24 04/01/24 14:57 Currently or been in a relationship where the following occur: No concerns reported Const General: no acute distress and alert HENMT Ears: TM's normal bilaterally and EAC's normal Face and sinus: Yes sinus tenderness (bilaterally) Throat: Yes posterior oropharynx normal and Yes tonsils normal (no TP congestion) Neck Neck: Yes no lymphadenopathy Thyroid: Thyroid normal Resp Auscultation: clear to auscultation bilaterally, no rales and no wheezes Cardio Rate: regular rate Rhythm: regular rhythm Heart sounds: no murmurs GI Palpation (GI): Soft to palpation and nontender Auscultation: normal bowel sounds General: Yes no CVA tenderness Back/Spine/Pelvis Back: no CVA tenderness Cervical Spine: Cervical spine tenderness Thoracic/Lumbar Spine: lumbar spinal tenderness Skin Rashes: no rashes Extrem General: Yes no clubbing, cyanosis or edema Assessment and Plan Assessment & Plan (1) Headache: Code(s): R51.9 - Headache, unspecified Qualifiers: Headache type: unspecified Headache chronicity pattern: unspecified pattern Intractability: not intractable Qualified Code(s): R51.9 - Headache, unspecified Plan: Have advised patient that her recent headaches may likely be due to migraine as she has (+) Hx of migraine headaches Reinforced avoidance of migraine headaches She was started on prophylactic Tx with Nortriptyline in the past but it looks like she stopped taking the Rx at some point Will start her on Fioricet 1 tablet TID PRN for now Have advised her that her current sinus infection may also be contributing to and making her headaches feel worse and her headaches may improve with Tx of her sinusitis Is advised that if her headaches persist or get worse, may need referral to neurology for further evaluation and management (2) Sinusitis: Code(s): J32.9 - Chronic sinusitis, unspecified Qualifiers: Sinusitis location: unspecified location Chronicity: acute Recurrence: non-recurrent Qualified Code(s): J01.90 - Acute sinusitis, unspecified Plan: Will start her on empiric Abx Tx with Augmentin suspension (per patient's request) 600-42.9 mg/5 ml 7.5 mg BID x 10 days (3) Asthma: Code(s): J45.909 - Unspecified asthma, uncomplicated Qualifiers: Asthma severity: moderate Asthma persistence: persistent Asthma complication type: uncomplicated Qualified Code(s): J45.40 - Moderate persistent asthma, uncomplicated Plan: Stable lately Continue Symbicort 80-4.5 mcg 2 inhalations BID and Albuterol HFA 2 inhalations Q 6 hours PRN (Rx refilled) Patient also uses Duoneb solution via nebulizer for updrafts treatments Q 6 hours PRN (4) Allergic rhinitis: Code(s): J30.9 - Allergic rhinitis, unspecified Qualifiers: Allergic rhinitis trigger: unspecified Allergic rhinitis seasonality: unspecified Qualified Code(s): J30.9 - Allergic rhinitis, unspecified Plan: Continue Loratadine 10 mg QD PRN Due to her increasing symptoms, which I think are made worse by her current sinus infection, will refer her to allergy/immunology for further evaluation and consideration for allergy testing (5) Cervical disc disease: Code(s): M50.90 - Cervical disc disorder, unspecified, unspecified cervical region Plan: Continue Tramadol 50 mg TID PRN Will send patient for cervical spine x-rays TEO for further evaluation Have advised patient to try getting these done TEO as she has complained of neck pain for years but somehow has never gotten any x-rays of her cervical spine done for further evaluation (6) Gastroesophageal reflux disease: Code(s): K21.9 - Gastro-esophageal reflux disease without esophagitis Qualifiers: Esophagitis presence: without esophagitis Qualified Code(s): K21.9 - Gastro-esophageal reflux disease without esophagitis Plan: Dietary restrictions reinforced Upper GI series done back in 2017 revealed (+) mild gastroesophageal reflux with mild prominence of the gastric rugal folds along the greater curvature of the stomach suggestive of gastritis Was referred to GI last year but patient failed to keep her appointment Continue Omeprazole 20 mg QD (7) Insomnia: Code(s): G47.00 - Insomnia, unspecified Qualifiers: Insomnia type: unspecified Qualified Code(s): G47.00 - Insomnia, unspecified Plan: Sleep hygiene reinforced Continue Doxepin 10 mg Q HS PRN (8) Anxiety: Code(s): F41.9 - Anxiety disorder, unspecified Plan: Continue Doxepin 10 mg Q HS PRN (9) Overweight (BMI 25.0-29.9): Code(s): E66.3 - Overweight Plan: Reinforced diet/exercise as tolerated/lose weight Plan Follow up in 4 months Orders: Orders XR cervical spine 3V Today M54.2 - Cervicalgia Complete Blood Count Auto Diff Today D64.9 - Anemia, unspecified Lipid Panel Today E78.00 - Pure hypercholesterolemia, unspecified Vitamin D 25-OH Total Today E55.9 - Vitamin D deficiency, unspecified Comprehensive [place]. Panel Fast Today E78.00 - Pure hypercholesterolemia, unspecified TSH reflex Free T4 Today E78.00 - Pure hypercholesterolemia, unspecified UA CC w/rflx Micro + Cult Today R30.0 - Dysuria Referrals Allergy & Immunology Referral J30.9 - Allergic rhinitis, unspecified Medications: New ldkwdbchov-ajwfosdizvfsf-sdqk 50-300-40 mg (Fioricet) 1 cap PO Q8H PRN 30 caps 1RF headaches amoxicillin-pot clavulanate 600-42.9 mg/5 mL (Augmentin ES-) 7.5 mL PO Q12H 10 days 150 mL 0RF J32.9 - Chronic sinusitis, unspecified Refilled benzonatate 200 mg PO BID-TID PRN 30 caps 1RF cough albuterol sulfate 90 mcg/actuation (Ventolin HFA) 2 puffs inhalation Q6-8H 30 days PRN 8.5 grams 3RF shortness of breath or wheezing J45.40 - Moderate persistent asthma, uncomplicated budesonide-formoterol 80-4.5 mcg/actuation (Symbicort) 2 puffs inhalation BID 30 days 10.2 grams 3RF J45.40 - Moderate persistent asthma, uncomplicated Coding Level of Care Code Est Pt Level 4 (87875) Diagnoses Nonintractable headache, unspecified chronicity pattern, unspecified headache type R51.9 Headache type: unspecified Headache chronicity pattern: unspecified pattern Intractability: not intractable Acute non-recurrent sinusitis, unspecified location J01.90 Sinusitis location: unspecified location Chronicity: acute Recurrence: non-recurrent Moderate persistent asthma without complication J45.40 Asthma severity: moderate Asthma persistence: persistent Asthma complication type: uncomplicated Allergic rhinitis, unspecified seasonality, unspecified trigger J30.9 Allergic rhinitis trigger: unspecified Allergic rhinitis seasonality: unspecified Cervical disc disease M50.90 Gastroesophageal reflux disease without esophagitis K21.9 Esophagitis presence: without esophagitis Insomnia, unspecified type G47.00 Insomnia type: unspecified Anxiety F41.9 Overweight (BMI 25.0-29.9) E66.3
[2024-04-01 14:51] VITALS: BP 130/72; PULSE 91; O2SAT 98; BMI 27.8
== END 2024-04-01 15:34 | disposition home or self-care (01) ==
PROVIDERS: PCP Internal Medicine; Visit Provider Internal Medicine
DX: R51.9 Headache, unspecified (principal); J01.90 Acute sinusitis, unspecified; J45.40 Moderate persistent asthma, uncomplicated; J30.9 Allergic rhinitis, unspecified; M50.90 Cervical disc disorder, unspecified, unspecified cervical region; K21.9 Gastro-esophageal reflux disease without esophagitis; G47.00 Insomnia, unspecified; F41.9 Anxiety disorder, unspecified; E66.3 Overweight
CPT/HCPCS: 99214

== ENCOUNTER 2024-05-24 13:44 | Outpatient (AMB) | payer MEDICARE, MEDICAID, SELFPAY ==
[2024-05-24 13:51] VITALS: BP 116/72; PULSE 86; O2SAT 97; BMI 26.6
--- NOTE | 2024-05-24 13:51 | A.OFFVIS_ITS ---
Vital Signs 05/24/24 13:51 Height 5 ft 1 in Weight 141 lb BMI 26.6 BP 116/72 Blood Pressure Location Rt brachial Position Sitting Pulse 86 Pulse Source Pulse Oximeter Pulse Oximetry (%) 97 Oxygen Delivery Method Room Air Intake Visit Reasons: Low back pain Allergies sulfamethoxazole [From BACTRIM] Allergy (Severe, Verified 05/24/24 13:52) SHORTNESS OF BREATH trimethoprim [From BACTRIM] Allergy (Severe, Verified 05/24/24 13:52) SHORTNESS OF BREATH cephalexin [From KEFLEX] Allergy (Intermediate, Verified 05/24/24 13:52) SHORTNESS OF BREATH duloxetine Allergy (Intermediate, Verified 05/24/24 13:52) Back Pain ibuprofen [From MOTRIN] Allergy (Unknown, Verified 05/24/24 13:52) loopy feeling; giddiness Sulfa (Sulfonamide Antibiotics) Allergy (Unknown, Verified 05/24/24 13:52) anaphylaxis, rash, itchy, SOB gabapentin Adverse Reaction (Intermediate, Verified 05/24/24 13:52) Hallucinations tamoxifen Adverse Reaction (Intermediate, Verified 05/24/24 13:52) Itching morphine [MORPHINE] Adverse Reaction (Unknown, Verified 05/24/24 13:52) rash; sensation of giddiness; loopy feeling topiramate Adverse Reaction (Unknown, Verified 05/24/24 13:52) hallucination Medication List - Last Reconciled 05/24/24 by Sonia Manriquez albuterol sulfate 90 mcg/actuation (Ventolin HFA) 2 puffs inhalation Q6-8H PRN 30 days amoxicillin-pot clavulanate 600-42.9 mg/5 mL (Augmentin ES-) 7.5 mL PO Q12H 10 days benzonatate 200 mg PO BID-TID PRN budesonide-formoterol 80-4.5 mcg/actuation (Symbicort) 2 puffs inhalation BID 30 days storrkolxv-zvywufdsnwdgx-utwn 50-300-40 mg (Fioricet) 1 cap PO Q8H PRN ipratropium-albuterol 0.5 mg-3 mg(2.5 mg base)/3 mL 3 mL inhalation Q6-8H PRN 30 days lorazepam 0.5 mg PO BID PRN 5 days sumatriptan succinate take 1 tab at onset of headache; if no relief may repeat 1 tab after at least 2 hrs; max = 4 tabs/24 hr PO tramadol 50 mg PO QID PRN 30 days HPI Comments Details: Alia is a very pleasant 44-year-old female who presents to the office today for evaluation management of her back pain. Patient reports she has been suffering with this pain for approximately 1 month. Denies inciting injury, trauma, accident, fall Pain started in the lower back in his now rated up to include her thoracic and cervical area Mostly midline spine, worse with bending twisting walking, standing, lifting Pain today is rated as a 10/10, constant Denies radiation of the pain down either arm or down lower extremities Denies red flag symptoms including loss of bowel, bladder or saddle anesthesia Patient has been taking ibuprofen, Tylenol, prescribed tramadol all without improvement of her symptoms. She has not not tried physical therapy, massage, acupuncture, chiropractor or muscle relaxers PCP ordered x-rays of cervical, thoracic and lumbar spine March of this year but patient has not found the time to complete these yet She is prescribed 50 mg of tramadol 3 times daily by her primary care doctor, states despite this her pain persists In terms of muscle damage condition is described as aching, hot, burning, shocking, throbbing. Pain is negatively impacting patient's sleep, walking, enjoyment life, general activity and mood Denies current use of blood thinners Denies current use of alcohol or illicit substances Endorses smoking 3 cigarettes per day Denies implantable devices, pacemaker or defibrillator [facility] Medical History (Reviewed 04/01/24 @ 14:50 by Lala Perez FOR[facility]LY [facility], [facility]) Allergic rhinitis Obesity (BMI 30-39.9) Overweight (BMI 25.0-29.9) Insomnia Anxiety Migraine Asthma GERD (gastroesophageal reflux disease) Scoliosis Cervical disc disease Surgical History History of incision and drainage Hx of colonoscopy (~10/26/16) History of laparoscopic cholecystectomy (~08/24/17) History of tubal ligation Family History Father No problems noted. Mother Hypertension Breast cancer Maternal Aunt Breast cancer Sister Breast cancer Social History Housing: House Alcohol intake: current Alcohol intake frequency: does not drink Patient Tobacco Use Status: Former Tobacco user Cigarettes Per Day: 2 e-Cigarette/Vaping Use: Former Use service: No Current occupational status: disabled Cognitive needs: No Hearing needs: No Vision needs: No Review of Systems Const All systems reviewed & are unremarkable except as noted in HPI and below Physical Exam Vital Signs: Last Vital Signs Pulse 86 05/24/24 13:51 BP 116/72 05/24/24 13:51 Pulse Ox 97 05/24/24 13:51 Oxygen Delivery Method Room Air 05/24/24 13:51 BMI result Body Mass Index 26.6 General: awake, alert, oriented. Answers questions appropriately. Fully engaged in examination. Skin: warm, dry, intact HEENT: Normocephalic. Hearing intact. Cardiac: External chest normal in appearance. Respiratory: No cough, audible wheezing or stridor. Abdomen: without gross distension. MS: No obvious swelling or deformities. Able to stand on bilateral tiptoes and bilateral heels.? Able to transition from sit to stand unassisted. Ambulates with bilaterally normal heel strike and toe off SLR negative bilaterally Tender to light touch midline cervical, thoracic and lumbar vertebrae and paraspinal muscles Facet loading positive Nontender for bilateral PSIS Bilateral lower extremity strength 5/5 Decreased lumbar range of motion, pain with forward flexion at 30 degrees and extension at 5 degrees Neurological: Oriented to person, place, time and situation. Thought process intact. No gait abnormalities appreciated. Psychiatric: Appropriate mood and affect. Good judgment and insight. 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 X-rays were ordered by primary care doctor 03/2024 which have yet to be completed. Patient will have those done as soon as possible. Order placed for PT eval and treat for bilateral upper middle lower back pain Baclofen 5 mg p.o. t.i.d. prn, patient advised on cautions for use. No driving while taking this medication, do not take with any other [employer] depressants. All questions and concerns were answered, patient agrees with the plan. Follow up after PT, sooner if needed Orders: Orders PT Evaluation and Treatment Today M43.02 - Spondylolysis, cervical region, M47.816 - Spondylosis without myelopathy or radiculopathy, lumbar region, M62.830 - Muscle spasm of back, M79.18 - Myalgia, other site Medications: New baclofen 5 mg PO TID 90 tabs 3RF Coding Level of Care Code New Pt Level 4 (75361) Complex EM visit Add On G2211 Diagnoses Myofascial muscle pain M79.18 Cervical spondylolysis M43.02 Lumbar paraspinal muscle spasm M62.830 Lumbar spondylosis M47.816
== END 2024-05-24 14:08 | disposition home or self-care (01) ==
PROVIDERS: PCP Internal Medicine; Visit Provider Registered Nurse Emergency
DX: M79.18 Myalgia, other site (principal); M43.02 Spondylolysis, cervical region; M47.816 Spondylosis without myelopathy or radiculopathy, lumbar region
CPT/HCPCS: 99204; G2211

== ENCOUNTER → 2024-05-24 13:44 | Outpatient (BNVA) | payer MEDICARE, MEDICAID, SELFPAY | PROVIDERS: PCP Internal Medicine; Visit Provider Registered Nurse Emergency | DX: M79.18 Myalgia, other site (principal); M43.02 Spondylolysis, cervical region; M47.816 Spondylosis without myelopathy or radiculopathy, lumbar region | CPT/HCPCS: 99202 ==

== ENCOUNTER 2024-10-25 13:27 | Outpatient (AMB) | payer MEDICARE, MEDICAID, SELFPAY ==
--- NOTE | 2024-10-25 13:40 | MHC.PC.OV ---
Vital Signs 10/25/24 13:41 Height 5 ft 1 in Weight 152 lb 2 oz BMI 28.7 BP 122/78 Blood Pressure Location Lt brachial Position Sitting Pulse 76 Pulse Source Pulse Oximeter Pulse Oximetry (%) 98 Oxygen Delivery Method Room Air Intake Visit Reasons: 3M Follow Up Brand Strategy Manager Required: No Accompanied by: Self / Same As Patient Allergies sulfamethoxazole [From BACTRIM] Allergy (Severe, Verified 10/25/24 14:10) SHORTNESS OF BREATH trimethoprim [From BACTRIM] Allergy (Severe, Verified 10/25/24 14:10) SHORTNESS OF BREATH cephalexin [From KEFLEX] Allergy (Intermediate, Verified 10/25/24 14:10) SHORTNESS OF BREATH duloxetine Allergy (Intermediate, Verified 10/25/24 14:10) Back Pain ibuprofen [From MOTRIN] Allergy (Unknown, Verified 10/25/24 14:10) loopy feeling; giddiness Sulfa (Sulfonamide Antibiotics) Allergy (Unknown, Verified 10/25/24 14:10) anaphylaxis, rash, itchy, SOB gabapentin Adverse Reaction (Intermediate, Verified 10/25/24 14:10) Hallucinations tamoxifen Adverse Reaction (Intermediate, Verified 10/25/24 14:10) Itching morphine [MORPHINE] Adverse Reaction (Unknown, Verified 10/25/24 14:10) rash; sensation of giddiness; loopy feeling topiramate Adverse Reaction (Unknown, Verified 10/25/24 14:10) hallucination Medication List - Last Reconciled 10/25/24 by Arnold Liu MD albuterol sulfate 90 mcg/actuation (Ventolin HFA) 2 puffs inhalation Q6-8H PRN 30 days azelastine 0.05% 1 drp ophthalmic (eye) BID PRN baclofen 5 mg PO TID budesonide-formoterol 80-4.5 mcg/actuation (Symbicort) 2 puffs inhalation BID 30 days sccgpuwstp-rgztzfkokxuxl-gjnv 50-300-40 mg (Fioricet) 1 cap PO Q8H PRN ipratropium-albuterol 0.5 mg-3 mg(2.5 mg base)/3 mL 3 mL inhalation Q6-8H PRN 30 days lorazepam 0.5 mg PO BID PRN 5 days omeprazole 20 mg PO BID 60 days sumatriptan succinate take 1 tab at onset of headache; if no relief may repeat 1 tab after at least 2 hrs; max = 4 tabs/24 hr PO tramadol 50 mg PO QID PRN 30 days Tobacco use date assessed: 10/25/24 Dental Screening Dental Screen Date: 10/25/24 Did you have a dental visit in the last 12 months?: Yes Did you have a dental problem in the last 6 months where you did not have access to dental care?: No Was dental information given to patient?: Patient has dentist HPI 3M Follow Up HPI Details Patient comes in today for her follow-up visit - she has not been back since 04/01/2024 States that she has been experiencing recurrent cough and congestion and runny nose as well as sore throat for the past 3 days States that her was diagnosed with bronchitis recently and has been taking OTC cough/cold meds with little relief She denies any fever; denies any increased dizziness lately although she still has on and off headaches Denies any chest pains, no increased shortness of breath No nausea/vomiting, no abdominal pain at present No change in bowel habits noted Adds that she has been experiencing recurrent generalized itching for the past 8 months now States that she also breaks out with some rash off and on Notes that her symptoms seem to be worse when she is sleeping at night She denies using any new skin care products, laundry detergent or soap lately Adds that she was admitted to [facility] about a month ago and was 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 Mother Hypertension Breast cancer Maternal Aunt Breast cancer Sister Breast cancer Social History Housing: House Alcohol intake: current Alcohol intake frequency: does not drink Patient Tobacco Use Status: Former Tobacco user Cigarettes Per Day: 2 e-Cigarette/Vaping Use: Former Use service: No Current occupational status: disabled Cognitive needs: No Hearing needs: No Vision needs: No Questionnaire PHQ-9 Over the last 2 weeks, how often have you been bothered by any of the following problems? 1. Little interest or pleasure in doing things: not at all 2. Feeling down, depressed, or hopeless: not at all 3. Trouble falling or staying asleep, or sleeping too much: not at all 4. Feeling tired or having little energy: not at all 5. Poor appetite or overeating: not at all 6. Feeling bad about yourself - or that you are a failure or have let yourself or your family down: not at all 7. Trouble concentrating on things, such as reading the newspaper or watching television: not at all 8. Moving or speaking so slowly that other people could have noticed. Or the opposite - being so fidgety or restless that you have been moving around a lot more than usual: not at all 9. Thoughts that you would be better off or of hurting yourself in some way: not at all Total score: 0 Depression Screening Interpretation: Negative Depression Screening Done: Yes 35874 - PHQ-9 Billing: Yes Source: Developed by Drs. Uziel Raza, Loretta Julien, Chauncey Velasco and colleagues, with an educational yumiko from [employer]. Thrive Questionnaire Date Thrive assessed: 10/25/24 I am a: Patient What is your living situation today?: I have a steady place to live Within the past 12 months, did the food you bought not last and you didn't have the money to get more?: Never true Within the past 12 months, did you worry whether your food would run out before you got money to buy more?: Never true Do you have trouble paying for medicines?: No Do you have trouble getting transportation to medical appointments?: No Do you have trouble paying your heating and electricity bill?: No Do you have trouble taking care of your child, family member or friend?: No Do you have trouble with day-to-day activities such as bathing, preparing meals, shopping, managing finances, etc.?: No Are you currently unemployed and looking for a job?: No Are you interested in more education?: No Please select the resources that you would like help with: None Currently or been in a relationship where the following occur: No concerns reported THRIVE Score: 0 AUDIT C Alcohol Use Questionnaire (AUDIT-C) 1. How often do you have a drink containing alcohol?: Never 3. How often do you have six or more drinks on one occasion?: Never Total Score: 0 Score Reviewed/Action Taken: Yes JEROME-7 AMB Questionnaire JEROME-7 Date JEROME - 7 assessed: 10/25/24 Feeling nervous, anxious, or on edge: 0 = Not at all Not being able to stop or control worryin = Not at all Worrying too much about different things: 0 = Not at all Trouble relaxin = Not at all Being so restless that it is hard to sit still: 0 = Not at all Becoming easily annoyed or irritable: 0 = Not at all Feeling afraid as if something awful might happen: 0 = Not at all Total JEROME-7 score (0-4 normal; 5-9 mild; 10-14 moderate; 15-21 severe): 0 Source: Developed by Drs. Uziel Raza, Loretta Julien, Chauncey Velasco and colleagues, with an educational yumiko from [employer]. Review of Systems Const Denies chills, Reports fatigue, Denies fever(s) and Reports headache(s) (on and off) ENT Denies dysphagia, Denies dizziness, Denies otalgia, Reports headache(s) (on and off), Reports nasal congestion, Reports neck pain (chronic), Denies odynophagia, Denies sinus pain and Reports sore throat (mild) Card Denies chest pain, Denies palpitations and Denies dyspnea Resp Reports chest congestion (mild), Reports cough (on and off - coughs up minimal whitish phlegm at times), Denies dyspnea and Denies wheezing GI Denies abdominal pain, Denies constipation, Denies dysphagia, Denies diarrhea, Denies nausea, Denies odynophagia and Denies vomiting Denies difficulty voiding, Denies nocturia, Denies dysuria and Denies urinary urgency Musc Reports back pain (on and off) and Reports neck pain (chronic) Skin/Breast Reports pruritus (recurrent over the past several months) and Reports rash (on and off - see HPI) Neuro Denies dizziness and Reports headache(s) (on and off) Endo Reports fatigue and Denies palpitations Aller/Immun Denies wheezing Physical exam (Primary Care) Vital Signs: Last Vital Signs Pulse 76 10/25/24 13:41 BP 122/78 10/25/24 13:41 Pulse Ox 98 10/25/24 13:41 Oxygen Delivery Method Room Air 10/25/24 13:41 BMI result Body Mass Index 28.7 Tobacco/Smoking Status: Tobacco use Status Tobacco use date assessed 10/25/24 10/25/24 13:45 Patient Tobacco Use Status Former Tobacco user 10/25/24 13:45 e-Cigarette/Vaping Use Former Use 10/25/24 13:45 PHQ-9: PHQ-9 Score PHQ-9: Total score 0 10/25/24 14:17 Depression Screening Interpretation: Negative Thrive Assessment: Date of Thrive Assessment Date Thrive assessed 10/25/24 10/25/24 13:45 Currently or been in a relationship where the following occur: No concerns reported Const General: no acute distress and alert HENMT Ears: TM's normal bilaterally and EAC's normal Throat: Yes tonsils normal (no TP congestion) and Yes posterior oropharynx abnormal ((+) erythema over the posterior pharyngeal wall) Neck Neck: No lymphadenopathy Thyroid: Thyroid normal Resp Auscultation: no crackles, no rales, rhonchi (occasional) throughout and no wheezes Cardio Rate: regular rate Rhythm: regular rhythm Heart sounds: no murmurs GI Palpation (GI): Soft to palpation and nontender Auscultation: normal bowel sounds General: Yes no CVA tenderness Back/Spine/Pelvis Back: no CVA tenderness Cervical Spine: Cervical spine tenderness Thoracic/Lumbar Spine: lumbar spinal tenderness Skin Lesions: no lesions Rashes: no rashes Extrem General: Yes no clubbing, cyanosis or edema Coding Level of Care Code Est Pt Level 4 (62016) Diagnoses Respiratory tract infection J98.8 Nonintractable headache, unspecified chronicity pattern, unspecified headache type R51.9 Headache type: unspecified Headache chronicity pattern: unspecified pattern Intractability: not intractable Moderate persistent asthma without complication J45.40 Asthma severity: moderate Asthma persistence: persistent Asthma complication type: uncomplicated Allergic rhinitis, unspecified seasonality, unspecified trigger J30.9 Allergic rhinitis trigger: unspecified Allergic rhinitis seasonality: unspecified Cervical disc disease M50.90 Midline low back pain without sciatica, unspecified chronicity M54.50 Chronicity: unspecified Back pain laterality: midline Sciatica presence: without sciatica Gastroesophageal reflux disease without esophagitis K21.9 Esophagitis presence: without esophagitis Pruritic rash L28.2 Insomnia, unspecified type G47.00 Insomnia type: unspecified Anxiety F41.9 Overweight (BMI 25.0-29.9) E66.3 Additional Codes PHQ-9 - 69513 - PHQ-9 Billing: Yes ([id number]) Assessment & Plan Assessment & Plan (1) Respiratory tract infection: Code(s): J98.8 - Other specified respiratory disorders Category: Medical Plan: Will send patient to the lab to check her viral panel and will send in any other Rx as indicated Will start her empirically in the meantime on Azithromycin QD x 5 days (2) Headache: Code(s): R51.9 - Headache, unspecified Category: Medical Qualifiers: Headache type: unspecified Headache chronicity pattern: unspecified pattern Intractability: not intractable Qualified Code(s): R51.9 - Headache, unspecified Plan: Patient has been advised previously that her headaches are likely migraine headaches as she has (+) Hx of migraine Reinforced avoidance of any potential migraine triggers She was started on prophylactic Tx with Nortriptyline in the past but she apparently stopped taking this at some point Continue Fioricet 1 tablet TID PRN for now She has also been advised that we will refer her to neurology again for further evaluation and management if her headaches persist or get worse She has seen neurology in the past but has not been compliant with her follow-ups with neurology (3) Asthma: Code(s): J45.909 - Unspecified asthma, uncomplicated Category: Medical Qualifiers: Asthma severity: moderate Asthma persistence: persistent Asthma complication type: uncomplicated Qualified Code(s): J45.40 - Moderate persistent asthma, uncomplicated Plan: Stable/controlled Continue Symbicort 80-4.5 mcg 2 inhalations BID and Albuterol HFA 2 inhalations Q 6 hours PRN Patient also uses Duoneb solution via nebulizer for updraft treatments Q 6 hours PRN (4) Allergic rhinitis: Code(s): J30.9 - Allergic rhinitis, unspecified Category: Medical Qualifiers: Allergic rhinitis trigger: unspecified Allergic rhinitis seasonality: unspecified Qualified Code(s): J30.9 - Allergic rhinitis, unspecified Plan: Continue Loratadine 10 mg QD PRN She was also previously referred for allergy testing and evaluation but she does not appear to have any appointments scheduled yet - unclear at this time if patient is actually pursuing this or not (5) Cervical disc disease: Code(s): M50.90 - Cervical disc disorder, unspecified, unspecified cervical region Category: Medical Plan: Continue Tramadol 50 mg TID PRN She has again been sent for cervical spine x-rays for further evaluation at her last appointment but she has not gotten this done Patient has been complaining of neck pain for years and has been sent for imaging studies for further evaluation multiple times but still has not managed to get any of these done at all Have advised patient that if she is really serious about her chronic pain and wants to find out what is causing these, then she really needs to get her imaging studies done when they are ordered She is currently going to physical therapy for her neck pain, as referred by the walk-in clinic when she was seen there for her neck pain a few months ago (6) Low back pain: Code(s): M54.50 - Low back pain, unspecified Category: Medical Qualifiers: Chronicity: unspecified Back pain laterality: midline Sciatica presence: without sciatica Qualified Code(s): M54.50 - Low back pain, unspecified Plan: Reinforced activity and weight-lifting restrictions Patient has also been complaining of recurrent low back pain for years and has been sent for imaging studies several times but has never been able to get any of these done at all (7) Gastroesophageal reflux disease: Code(s): K21.9 - Gastro-esophageal reflux disease without esophagitis Category: Medical Qualifiers: Esophagitis presence: without esophagitis Qualified Code(s): K21.9 - Gastro-esophageal reflux disease without esophagitis Plan: Dietary restrictions reinforced Upper GI series done back in 2017 revealed (+) mild gastroesophageal reflux with mild prominence of the gastric rugal folds along the greater curvature of the stomach suggestive of gastritis She was referred to GI last year but patient failed to keep her appointment - it appears that compliance is a significant issue for this patient Continue Omeprazole 20 mg QD (8) Pruritic rash: Code(s): L28.2 - Other prurigo Category: Medical Plan: Will send patient for some labs TEO for further evaluation of her recurrent pruritus and rash over the past few months If her labs are unrevealing and her symptoms continue to recur, we will consider referring her again for allergy testing and evaluation For now, will start her on Hydroxyzine 25 mg TID PRN for symptomatic relief (9) Insomnia: Code(s): G47.00 - Insomnia, unspecified Category: Medical Qualifiers: Insomnia type: unspecified Qualified Code(s): G47.00 - Insomnia, unspecified Plan: Sleep hygiene reinforced Continue Doxepin 10 mg Q HS PRN (10) Anxiety: Code(s): F41.9 - Anxiety disorder, unspecified Category: Medical Plan: Continue Doxepin 10 mg Q HS PRN (11) Overweight (BMI 25.0-29.9): Code(s): E66.3 - Overweight Category: Medical Plan: Reinforced diet/exercise as tolerated/lose weight although unclear if she is able to do the exercise part due to her recurrent neck and low back pain although it appears that she has never been serious about getting these checked out further and seems happy to just get some medications whenever she complains of pain Plan Follow up in 3 months Orders: Orders SARS-CoV2/FLU/RSV 10/25/24 J98.8 - Other specified respiratory disorders, L28.2 - Other prurigo C Reactive Protein 10/25/24 L28.2 - Other prurigo Erythrocyte Sedimentation Rate 3 Months L28.2 - Other prurigo, M79.7 - Fibromyalgia Referrals Dermatology Referral L28.2 - Other prurigo Medications: New azithromycin take 500 mg today (day 1), then 250 mg for 4 days (days 2-5) PO 6 tabs 0RF hydroxyzine HCl 25 mg PO TID 30 days PRN 90 tabs 0RF itching / rash
== END 2024-10-25 14:19 | disposition home or self-care (01) ==
PROVIDERS: PCP Internal Medicine; Visit Provider Internal Medicine
DX: J98.8 Other specified respiratory disorders (principal); R51.9 Headache, unspecified; J45.40 Moderate persistent asthma, uncomplicated; J30.9 Allergic rhinitis, unspecified; M50.90 Cervical disc disorder, unspecified, unspecified cervical region; M54.50 Low back pain, unspecified; K21.9 Gastro-esophageal reflux disease without esophagitis; L28.2 Other prurigo; G47.00 Insomnia, unspecified; F41.9 Anxiety disorder, unspecified; E66.3 Overweight

== ENCOUNTER → 2024-10-25 13:27 | Outpatient (BNVA) | payer MEDICARE, MEDICAID, SELFPAY | PROVIDERS: PCP Internal Medicine; Visit Provider Internal Medicine | DX: J98.8 Other specified respiratory disorders (principal); R51.9 Headache, unspecified; J45.40 Moderate persistent asthma, uncomplicated; J30.9 Allergic rhinitis, unspecified; M50.90 Cervical disc disorder, unspecified, unspecified cervical region; M54.50 Low back pain, unspecified; K21.9 Gastro-esophageal reflux disease without esophagitis; L28.2 Other prurigo; G47.00 Insomnia, unspecified; F41.9 Anxiety disorder, unspecified; E66.3 Overweight | CPT/HCPCS: 96127; 99212 ==

== ENCOUNTER 2025-01-22 10:11 | Outpatient (AMB) | payer MEDICARE, MEDICAID, SELFPAY ==
--- NOTE | 2025-01-22 10:12 | A.OFFPC_ITS ---
Intake Visit Reasons: 3M Follow Up Policy And Planning Manager Required: No Accompanied by: Self / Same As Patient Allergies sulfamethoxazole [From BACTRIM] Allergy (Severe, Verified 01/22/25 10:46) SHORTNESS OF BREATH trimethoprim [From BACTRIM] Allergy (Severe, Verified 01/22/25 10:46) SHORTNESS OF BREATH cephalexin [From KEFLEX] Allergy (Intermediate, Verified 01/22/25 10:46) SHORTNESS OF BREATH duloxetine Allergy (Intermediate, Verified 01/22/25 10:46) Back Pain ibuprofen [From MOTRIN] Allergy (Unknown, Verified 01/22/25 10:46) loopy feeling; giddiness Sulfa (Sulfonamide Antibiotics) Allergy (Unknown, Verified 01/22/25 10:46) anaphylaxis, rash, itchy, SOB gabapentin Adverse Reaction (Intermediate, Verified 01/22/25 10:46) Hallucinations tamoxifen Adverse Reaction (Intermediate, Verified 01/22/25 10:46) Itching morphine [MORPHINE] Adverse Reaction (Unknown, Verified 01/22/25 10:46) rash; sensation of giddiness; loopy feeling topiramate Adverse Reaction (Unknown, Verified 01/22/25 10:46) hallucination Medication List - Last Reconciled 01/22/25 by Arnold Liu MD albuterol sulfate 90 mcg/actuation (Ventolin HFA) 2 puffs inhalation Q6-8H PRN 30 days azelastine 0.05% 1 drp ophthalmic (eye) BID PRN baclofen 5 mg PO TID budesonide-formoterol 80-4.5 mcg/actuation (Symbicort) 2 puffs inhalation BID 30 days juibwialmh-tvenzhbcxnxqi-allz 50-300-40 mg (Fioricet) 1 cap PO Q8H PRN hydrocortisone 2.5% 1 appl topical TID ipratropium-albuterol 0.5 mg-3 mg(2.5 mg base)/3 mL 3 mL inhalation Q6-8H PRN 30 days lorazepam 0.5 mg PO BID PRN 5 days omeprazole 20 mg PO BID 60 days sumatriptan succinate take 1 tab at onset of headache; if no relief may repeat 1 tab after at least 2 hrs; max = 4 tabs/24 hr PO tramadol 50 mg PO QID PRN 30 days Tobacco use date assessed: 01/22/25 Dental Screening Dental Screen Date: 10/25/24 Did you have a dental visit in the last 12 months?: Yes Did you have a dental problem in the last 6 months where you did not have access to dental care?: No Was dental information given to patient?: Patient has dentist HPI 3M Follow Up HPI Details Patient's follow-up visit / consultation today is done over the phone - this is a Telehealth visit Patient's current medications have been reviewed and verified with patient and / or caregiver / proxy and have been updated accordingly in the medication list She asked to have her appointment today changed over to a telehealth visit as she is sick and would not be able to make it into the office today Reports that she has been experiencing flu-like symptoms for 2 or more days now Relates (+) sore throat, on and off headaches and increased cough and congestion at present Denies any fever - temperature this morning was at 98.5 F Reports also (+) abdominal pain recently Thinks that she may have caught the flu from her niece as her niece tested positive for influenza recently She denies any diarrhea; denies any exertional chest pains Adds that she has been experiencing symptoms of stress incontinence for a while now - notes that she ends up peeing on herself whenever she coughs and that this has been going on for a while now She denies any dysuria Also needs a couple of her Rx (inhalers) refilled She still has not gotten her follow up labs or x-rays that were previously ordered done yet - last labs were from about 3 years ago now [facility] Medical History Urinary incontinence Allergic rhinitis Obesity (BMI 30-39.9) Overweight (BMI 25.0-29.9) Insomnia Anxiety Migraine Asthma GERD (gastroesophageal reflux disease) Scoliosis Cervical disc disease Surgical History History of incision and drainage Hx of colonoscopy (~10/26/16) History of laparoscopic cholecystectomy (~08/24/17) History of tubal ligation Family History Father No problems noted. Mother Hypertension Breast cancer Maternal Aunt Breast cancer Sister Breast cancer Social History Housing: House Alcohol intake: current Alcohol intake frequency: does not drink Patient Tobacco Use Status: Former Tobacco user Cigarettes Per Day: 2 e-Cigarette/Vaping Use: Former Use service: No Current occupational status: disabled Cognitive needs: No Hearing needs: No Vision needs: No Questionnaire PHQ-9 Over the last 2 weeks, how often have you been bothered by any of the following problems? 1. Little interest or pleasure in doing things: not at all 2. Feeling down, depressed, or hopeless: not at all 3. Trouble falling or staying asleep, or sleeping too much: not at all 4. Feeling tired or having little energy: not at all 5. Poor appetite or overeating: not at all 6. Feeling bad about yourself - or that you are a failure or have let yourself or your family down: not at all 7. Trouble concentrating on things, such as reading the newspaper or watching television: not at all 8. Moving or speaking so slowly that other people could have noticed. Or the opposite - being so fidgety or restless that you have been moving around a lot more than usual: not at all 9. Thoughts that you would be better off or of hurting yourself in some way: not at all Total score: 0 Depression Screening Interpretation: Negative Depression Screening Done: Yes 76631 - PHQ-9 Billing: Yes Source: Developed by Drs. Uziel Raza, Loretta Julien, Chauncey Velasco and colleagues, with an educational yumiko from [employer]. Thrive Questionnaire Date Thrive assessed: 01/22/25 I am a: Patient What is your living situation today?: I have a steady place to live Within the past 12 months, did the food you bought not last and you didn't have the money to get more?: Never true Within the past 12 months, did you worry whether your food would run out before you got money to buy more?: Never true Do you have trouble paying for medicines?: No Do you have trouble getting transportation to medical appointments?: No Do you have trouble paying your heating and electricity bill?: No Do you have trouble taking care of your child, family member or friend?: No Do you have trouble with day-to-day activities such as bathing, preparing meals, shopping, managing finances, etc.?: No Are you currently unemployed and looking for a job?: No Are you interested in more education?: No Please select the resources that you would like help with: None Currently or been in a relationship where the following occur: No concerns reported THRIVE Score: 0 AUDIT C Alcohol Use Questionnaire (AUDIT-C) 1. How often do you have a drink containing alcohol?: Never 3. How often do you have six or more drinks on one occasion?: Never Total Score: 0 Score Reviewed/Action Taken: Yes JEROME-7 AMB Questionnaire JEROME-7 Date JEROME - 7 assessed: 01/22/25 Feeling nervous, anxious, or on edge: 0 = Not at all Not being able to stop or control worryin = Not at all Worrying too much about different things: 0 = Not at all Trouble relaxin = Not at all Being so restless that it is hard to sit still: 0 = Not at all Becoming easily annoyed or irritable: 0 = Not at all Feeling afraid as if something awful might happen: 0 = Not at all Total JEROME-7 score (0-4 normal; 5-9 mild; 10-14 moderate; 15-21 severe): 0 Source: Developed by Drs. Uziel Raza, Loretta Julien, Chauncey Velasco and colleagues, with an educational yumiko from [employer]. Review of Systems Const Denies chills, Reports fatigue, Denies fever(s) and Reports headache(s) (on and off) ENT Denies dysphagia, Denies dizziness, Denies otalgia, Reports headache(s) (on and off), Reports nasal congestion, Reports neck pain (chronic), Denies odynophagia, Denies sinus pain and Reports sore throat Card Denies chest pain, Denies palpitations and Denies dyspnea Resp Reports chest congestion, Reports cough (on and off - coughs up minimal whitish phlegm at times), Denies dyspnea and Denies wheezing GI Reports abdominal pain (on and off cramping pain lately), Denies constipation, Denies dysphagia, Denies diarrhea, Denies nausea, Denies odynophagia and Denies vomiting Denies difficulty voiding, Denies nocturia, Denies dysuria, Reports urinary incontinence (mostly when she coughs - ongoing for a while now) and Denies urinary urgency Musc Reports back pain (on and off) and Reports neck pain (chronic) Skin/Breast Denies rash Neuro Denies dizziness and Reports headache(s) (on and off) Endo Reports fatigue and Denies palpitations Aller/Immun Denies wheezing Physical exam (Primary Care) Vital Signs: Physical examination is not performed as visit / consultation today is done over the phone - Telehealth visit All physical findings indicated here, if present, are as per patient's and / or caregivers / proxy's report Tobacco/Smoking Status: Tobacco use Status Tobacco use date assessed 01/22/25 01/22/25 10:14 Patient Tobacco Use Status Former Tobacco user 01/22/25 10:14 e-Cigarette/Vaping Use Former Use 01/22/25 10:14 PHQ-9: PHQ-9 Score PHQ-9: Total score 0 01/22/25 10:58 Depression Screening Interpretation: Negative Thrive Assessment: Date of Thrive Assessment Date Thrive assessed 01/22/25 01/22/25 10:14 Currently or been in a relationship where the following occur: No concerns reported Telehealth Telehealth Telehealth Platform: Telephone (Voice Only) Location of provider rendering services: practice address Location of patient: address on file Patient Identification confirmed using: Name, : Yes Telehealth method: voice only Patient verbally consented to treatment: Yes Patient verbally consented to billing insurance company: Yes Patient informed of any privacy concerns related to visit: Yes Minutes spent on Phone/Video with Pt.: 22 Coding Level of Care Code Tele Est Pt Level 4 (97037) Diagnoses Respiratory tract infection J98.8 Moderate persistent asthma without complication J45.40 Asthma severity: moderate Asthma persistence: persistent Asthma complication type: uncomplicated Allergic rhinitis, unspecified seasonality, unspecified trigger J30.9 Allergic rhinitis trigger: unspecified Allergic rhinitis seasonality: unspecified Stress incontinence of urine N39.3 Urinary Incontinence type: stress incontinence Nonintractable headache, unspecified chronicity pattern, unspecified headache type R51.9 Headache type: unspecified Headache chronicity pattern: unspecified pattern Intractability: not intractable Cervical disc disease M50.90 Midline low back pain without sciatica, unspecified chronicity M54.50 Chronicity: unspecified Back pain laterality: midline Sciatica presence: without sciatica Gastroesophageal reflux disease without esophagitis K21.9 Esophagitis presence: without esophagitis Insomnia, unspecified type G47.00 Insomnia type: unspecified Anxiety F41.9 Overweight (BMI 25.0-29.9) E66.3 Additional Codes PHQ-9 - 17880 - PHQ-9 Billing: Yes ([id number]) Assessment & Plan Assessment & Plan (1) Respiratory tract infection: Code(s): J98.8 - Other specified respiratory disorders Category: Medical Plan: Have again advised patient that she should try to get herself tested for COVID TEO so we can treat her appropriately Patient states that her niece tested positive for flu recently and she was exposed to her niece so she does not think she has COVID For now. we will start her empirically again on Azithromycin QD x 5 days (2) Asthma: Code(s): J45.909 - Unspecified asthma, uncomplicated Category: Medical Qualifiers: Asthma severity: moderate Asthma persistence: persistent Asthma complication type: uncomplicated Qualified Code(s): J45.40 - Moderate persistent asthma, uncomplicated Plan: Controlled lately Continue Symbicort 80-4.5 mcg 2 inhalations BID and Albuterol HFA 2 inhalations Q 6 hours PRN - Rx refilled Patient also uses Duoneb solution via nebulizer for updraft treatments Q 6 hours PRN (3) Allergic rhinitis: Code(s): J30.9 - Allergic rhinitis, unspecified Category: Medical Qualifiers: Allergic rhinitis trigger: unspecified Allergic rhinitis seasonality: unspecified Qualified Code(s): J30.9 - Allergic rhinitis, unspecified Plan: Continue Loratadine 10 mg QD PRN She was also previously referred for allergy testing and evaluation but she does not appear to have any appointments scheduled yet - unclear at this time if patient is actually pursuing this or not (4) Urinary incontinence: Code(s): R32 - Unspecified urinary incontinence Category: Medical Qualifiers: Urinary Incontinence type: stress incontinence Qualified Code(s): N39.3 - Stress incontinence (female) (male) Plan: Patient states that this occurs mostly when she coughs and has been going on for a while now Will go ahead and refer her to urology for further evaluation and management - she prefers to see urology in [place] if possible as it is closer to home for her (5) Headache: Code(s): R51.9 - Headache, unspecified Category: Medical Qualifiers: Headache type: unspecified Headache chronicity pattern: unspecified pattern Intractability: not intractable Qualified Code(s): R51.9 - Headache, unspecified Plan: Patient has been advised previously that her headaches are likely migraine headaches as she has (+) Hx of migraine Reinforced avoidance of any potential migraine triggers She was started on prophylactic Tx with Nortriptyline in the past but she apparently stopped taking this at some point Continue Fioricet 1 tablet TID PRN for now She has seen neurology in the past but has not been compliant with her follow- ups with neurology Have advised her that we will need to refer her to neurology again for further evaluation and management if her headaches persist or get worse (6) Cervical disc disease: Code(s): M50.90 - Cervical disc disorder, unspecified, unspecified cervical region Category: Medical Plan: Continue Tramadol 50 mg TID PRN She has again been sent for cervical spine x-rays for further evaluation at her previous appointment but she has not gotten this done Patient has been complaining of neck pain for years and has been sent for imaging studies for further evaluation multiple times but still has not managed to get any of these done at all Have advised patient that if she is really serious about her chronic pain and wants to find out what is causing these, then she really needs to get her imaging studies done when they are ordered She was going to physical therapy for her neck pain a few months ago, as referred by the walk-in clinic when she was seen there for her neck pain earlier this year Will need to have a long discussion with patient at her next in-office appointment about getting her tests done when they are ordered or I will not continue to refill her Rx for pain indefinitely unless we have some results from her work ups available for review (7) Low back pain: Code(s): M54.50 - Low back pain, unspecified Category: Medical Qualifiers: Chronicity: unspecified Back pain laterality: midline Sciatica presence: without sciatica Qualified Code(s): M54.50 - Low back pain, uns pecified Plan: Reinforced activity and weight-lifting restrictions Patient has also been complaining of recurrent low back pain for years and has been sent for imaging studies several times but has never been able to get any of these done at all as compliance appears to be a major issue for this patient (8) Gastroesophageal reflux disease: Code(s): K21.9 - Gastro-esophageal reflux disease without esophagitis Category: Medical Qualifiers: Esophagitis presence: without esophagitis Qualified Code(s): K21.9 - Gastro-esophageal reflux disease without esophagitis Plan: Dietary restrictions reinforced Upper GI series done back in 2017 revealed (+) mild gastroesophageal reflux with mild prominence of the gastric rugal folds along the greater curvature of the stomach suggestive of gastritis She was referred to GI last year but patient failed to keep her appointment - it appears that compliance is a significant issue for this patient Continue Omeprazole 20 mg QD (9) Insomnia: Code(s): G47.00 - Insomnia, unspecified Category: Medical Qualifiers: Insomnia type: unspecified Qualified Code(s): G47.00 - Insomnia, unspecified Plan: Sleep hygiene reinforced Continue Doxepin 10 mg Q HS PRN (10) Anxiety: Code(s): F41.9 - Anxiety disorder, unspecified Category: Medical Plan: Continue Doxepin 10 mg Q HS PRN (11) Overweight (BMI 25.0-29.9): Code(s): E66.3 - Overweight Category: Medical Plan: Reinforced diet/exercise as tolerated/lose weight although unclear if she is able to do the exercise part due to her recurrent neck and low back pain although it appears that she has never been serious about getting these checked out further and seems happy to just get some medications whenever she complains of pain Plan Follow up in 3 months Orders: Referrals Urology Referral R32 - Unspecified urinary incontinence Medications: New azithromycin take 500 mg today (day 1), then 250 mg for 4 days (days 2-5) PO 6 tabs 0RF Refilled lorazepam 0.5 mg PO BID 5 days PRN 10 tabs 0RF anxiety albuterol sulfate 90 mcg/actuation (Ventolin HFA) 2 puffs inhalation Q6-8H 30 days PRN 8.5 grams 3RF shortness of breath or wheezing J45.40 - Moderate persistent asthma, uncomplicated budesonide-formoterol 80-4.5 mcg/actuation (Symbicort) 2 puffs inhalation BID 30 days 10.2 grams 3RF J45.40 - Moderate persistent asthma, uncomplicated
--- OUTSIDE RECORDS SUMMARY | 2025-01-22 11:26 | XMS_ITS | Clinical Summary ---
Author Organization [facility] Address [address] [place] [address] Phone Care Team Providers Care Assistant Program Manager Name Role Phone Physician, No Pcp Primary Care Provider Unavaila ble Allergies No known active allergies Medications LORazepam (ATIVAN) 0.5 mg tablet Take 1 tablet (0.5 mg total) by mouth 2 (two) times a day if needed for anxiety. Active traMADoL (ULTRAM) 50 mg tablet Take 1 tablet (50 mg total) by mouth 4 (four) times a day if needed. for pain Active budesonide-formote roL (SYMBICORT) 80-4.5 mcg/actuation inhaler Inhale 2 puffs by mouth 2 (two) times a day. 4 Active albuterol HFA (PROAIR HFA ; PROVENTIL HFA ; VENTOLIN HFA) 90 mcg/actuation inhaler Inhale 2 puffs by mouth every 6 (six) hours if needed for wheezing or shortness of breath. Active sucralfate (CARAFATE) 1 gram tablet Take 1 tablet (1 g total) by mouth 4 (four) times a day (before meals and nightly). 120 each 11 4 08/12/20 25 Active bismuth subsalicylate 525 mg/15 mL suspensionIndicati ons:Acute gastric ulcer with hemorrhage and Helicobacter pylori infection Take 15 mL by mouth 4 (four) times a day. 840 mL 5 Active Active Problems Problem Noted Date Diagnosed Date Asthma 08/12/2024 Sleep apnea 08/12/2024 Resolved Problems Problem Noted Date Diagnosed Date Resolved Date Acute upper GI bleed 08/12/2024 11/25/2 024 Surgical History Surgery Date Site/Laterality Comments TUBAL LIGATION PROCEDURE: HISTORICAL TUBAL LIGATION CHOLECYSTECTOMY ESOPHAGOGASTRODUODENOSCOPY COLONOSCOPY Medical History Medical History Date Comments Asthma DX:Asthma JOSE ROBERTO (obstructive sleep apnea) DX :JOSE ROBERTO (obstructive sleep apnea); COMMENT: as a child Low back pain Family History Relation Name Status Comments Father unknown Mother cancer Social History Tobacco Use Types Packs/Day Years Used Date Smoking Tobacco: Every Day Cigarettes Smokeless Tobacco: Never Alcohol Use Standard Drinks/Week Comments Not Currently 0 (1 standard drink = 0.6 oz pur e alcohol) Interpersonal Safety Answer Date Record ed Physical Abuse 08/12/2024 Verbal Abuse 08/12/2024 Comments No Sex and Gender Information Value Date Recorded Sex Assigned at Not on file Legal Sex Female 10:37 AM EST Gender Identity Not on file Sexual Orientation Not on file Obstetrics History Last Filed Vital Signs Vital Sign Reading Time Taken Comments Blood Pressure 114/76 08/12/2024 4:38 PM EST Pulse 74 08/12/2024 4:38 PM EST Temperature 36.8 ??C (98.2 ??F) 08/12/2024 4:38 PM ES T Respiratory Rate 16 08/12/2024 4:38 PM EST Oxygen Saturation 100% 08/12/2024 4:38 PM EST Inhaled Oxygen Concentration - - Weight 68.9 kg (152 lb) 08/12/2024 2:44 PM EST Height 158.5 cm (5' 2.4 ) 08/12/2024 2:44 PM EST Body Mass Index 27.45 08/12/2024 2:44 PM EST Plan of Treatment Health Maintenance Due Date Last Done Comments Breast Cancer Screening 1982 DTaP,Tdap,and Td Vaccines (1 - Tdap) 2001 Hepatitis B Vaccines (1 of 3 - 19+ 3-dose series) 2001 Pneumococcal Vaccine: Pediatrics (0 to 5 Years) and At-Risk Patients (6 to 64 Years) (1 of 2 - PCV) 2001 Cervical Cancer Screening: P ap Smear 2003 Cholesterol Screening (Lipid Panel) 08/16/2022 Depression Screening 08/16/2022 HIV Screening 08/16/2022 Hepatitis C Screening 08/16/2022 Medicare Annual Wellness Visit 08/16/2022 Social Influencers of Health Screening 08/16/2022 COVID-19 Vaccine (2023-2 5 season) 2024 01/25/2023, 11/12/2021 Influenza Vaccine (Season Ended) 2025 HIB Vaccines Aged Out No longer eligi ble based on patient's age to complete this topic HPV Vaccines Aged Out No longer eligi ble based on patient's age to complete this topic Hepatitis A Vaccines Aged Out No long er eligible based on patient's age to complete this topic IPV Vaccines Aged Out No longer eligi ble based on patient's age to complete this topic MMR Vaccines Aged Out No longer eligi ble based on patient's age to complete this topic Meningococcal ACWY Vaccine Aged Out N o longer eligible based on patient's age to complete this topic Meningococcal B Vaccine Aged Out No l onger eligible based on patient's age to complete this topic RSV Immunization Patients Under 20 months Aged Out No longer eligible b ased on patient's age to complete this topic Varicella Vaccines Aged Out No longer eligible based on patient's age to complete this topic Insurance MEDICARE MEDICAID - [place] Advance Directives * Full Code - Default (Latest Code Status on File) Date Activated Date Inactivated Comments 08/12/2024 5:29 AM 08/12/2024 8:31 PM This is or mikey is used when code status has not been discussed with the patient, or code status is otherwise unknown/unconfirmed To update the patient's code status, place a code status order. Do not modify or discontinue any currently active code status orders. Care Teams Assistant Program Manager Relationship Specialty Start Date End Date Physician, No Pcp PCP - General 08/11/24
== END 2025-01-22 10:59 | disposition home or self-care (01) ==
LOC: HO.HMCH 10:11
PROVIDERS: PCP Internal Medicine; Visit Provider Internal Medicine
DX: J98.8 Other specified respiratory disorders (principal); J45.40 Moderate persistent asthma, uncomplicated; J30.9 Allergic rhinitis, unspecified; N39.3 Stress incontinence (female) (male); R51.9 Headache, unspecified; M50.90 Cervical disc disorder, unspecified, unspecified cervical region; M54.50 Low back pain, unspecified; K21.9 Gastro-esophageal reflux disease without esophagitis; G47.00 Insomnia, unspecified; F41.9 Anxiety disorder, unspecified; E66.3 Overweight

== ENCOUNTER → 2025-01-22 10:11 | Outpatient (BNVA) | payer MEDICARE, MEDICAID, SELFPAY | PROVIDERS: PCP Internal Medicine; Visit Provider Internal Medicine | DX: J98.8 Other specified respiratory disorders (principal); J45.40 Moderate persistent asthma, uncomplicated; J30.9 Allergic rhinitis, unspecified; N39.3 Stress incontinence (female) (male); R51.9 Headache, unspecified; M50.90 Cervical disc disorder, unspecified, unspecified cervical region; M54.50 Low back pain, unspecified; K21.9 Gastro-esophageal reflux disease without esophagitis; G47.00 Insomnia, unspecified; F41.9 Anxiety disorder, unspecified; E66.3 Overweight; Z71.3 Dietary counseling and surveillance | CPT/HCPCS: 96127 ==

== ENCOUNTER 2025-04-24 11:46 | Outpatient (AMB) | payer MEDICARE, MEDICAID, SELFPAY ==
--- NOTE | 2025-04-24 11:48 | A.OFFPC_ITS ---
Vital Signs 04/24/25 11:50 Height 5 ft 1 in Weight 157 lb 8 oz BMI 29.8 BP 110/72 Blood Pressure Location Lt brachial Position Sitting Pulse 79 Pulse Source Pulse Oximeter Temp 97.3 F Temp Source Temporal Artery Scan Pulse Oximetry (%) 98 Oxygen Delivery Method Room Air Intake Visit Reasons: 3M Follow Up Intake Note: Patient is here to follow up on Asthma, Migraine, Low back pain. Licensed Dispensing Optician Required: [place] Reporter: Not Required per policy Accompanied by: Self / Same As Patient Allergies sulfamethoxazole (From BACTRIM) Allergy (Severe, Verified 04/24/25 12:09) SHORTNESS OF BREATH trimethoprim (From BACTRIM) Allergy (Severe, Verified 04/24/25 12:09) SHORTNESS OF BREATH cephalexin (From KEFLEX) Allergy (Intermediate, Verified 04/24/25 12:09) SHORTNESS OF BREATH duloxetine Allergy (Intermediate, Verified 04/24/25 12:09) Back Pain ibuprofen (From MOTRIN) Allergy (Unknown, Verified 04/24/25 12:09) loopy feeling; giddiness Sulfa (Sulfonamide Antibiotics) Allergy (Unknown, Verified 04/24/25 12:09) anaphylaxis, rash, itchy, SOB gabapentin Adverse Reaction (Intermediate, Verified 04/24/25 12:09) Hallucinations tamoxifen Adverse Reaction (Intermediate, Verified 04/24/25 12:09) Itching morphine (MORPHINE) Adverse Reaction (Unknown, Verified 04/24/25 12:09) rash; sensation of giddiness; loopy feeling topiramate Adverse Reaction (Unknown, Verified 04/24/25 12:09) hallucination Medication List - Last Reconciled 04/24/25 by Arnold Liu MD albuterol sulfate 90 mcg/actuation (Ventolin HFA) 2 puffs inhalation Q6-8H PRN 30 days baclofen 5 mg PO TID budesonide-formoterol 80-4.5 mcg/actuation (Symbicort) 2 puffs inhalation BID 30 days tzslucjvnu-yllerqlvtuvzx-tfrj 50-300-40 mg (Fioricet) 1 cap PO Q8H PRN hydrocortisone 2.5% 1 appl topical TID ipratropium-albuterol 0.5 mg-3 mg(2.5 mg base)/3 mL 3 mL inhalation Q6-8H PRN 30 days lorazepam 0.5 mg PO BID PRN 5 days omeprazole 20 mg PO BID 60 days sumatriptan succinate take 1 tab at onset of headache; if no relief may repeat 1 tab after at least 2 hrs; max = 4 tabs/24 hr PO tramadol 50 mg PO QID PRN 30 days Tobacco use date assessed: 04/24/25 Dental Screening Dental Screen Date: 10/25/24 HPI 3M Follow Up HPI Details The patient is a 45-year-old female who comes in today for her follow up visit She presents today with multiple complaints, including musculoskeletal pain, urinary incontinence, menopausal symptoms, back pain, dermatitis, and cough - Musculoskeletal pain: (+) neck pain, w ith intermittent pain radiating down the arm without recent trauma. - Urinary incontinence: Stress incontine nce with frequent episodes, history of childbirth noted. - Menopausal symptoms: Reports hot flash es and emotional instability. - Back pain: Current medication ineffect mitch, requests alternative treatment. - Dermatitis: Itchy rashes on chest, wor sened by heat exposure. - Cough: Persistent cough, denies smokin g, occasional vaping. She denies any fever Denies dizziness but still reports experiencing on and off headaches Denies any exertional chest pains, no increased shortness of breath No nausea/vomiting, no abdominal pain No change in bowel habits noted Needs several of her Rx refilled She still has not had any of her previously ordered labs done yet [facility] Medical History Urinary incontinence Allergic rhinitis Obesity (BMI 30-39.9) Overweight (BMI 25.0-29.9) Insomnia Anxiety Migraine Asthma GERD (gastroesophageal reflux disease) Scoliosis Cervical disc disease Surgical History History of incision and drainage Hx of colonoscopy (~10/26/16) History of laparoscopic cholecystectomy (~08/24/17) History of tubal ligation Family History Father No problems noted. Mother Hypertension Breast cancer Maternal Aunt Breast cancer Sister Breast cancer Social History Housing: House Alcohol intake: current Alcohol intake frequency: does not drink Patient Tobacco Use Status: Former Tobacco user Cigarettes Per Day: 2 e-Cigarette/Vaping Use: Former Use Second Hand Smoke Exposure: Yes service: No Current occupational status: disabled Cognitive needs: No Hearing needs: No Vision needs: No Questionnaire PHQ-9 Over the last 2 weeks, how often have you been bothered by any of the following problems? Depression Screening Interpretation: Negative Depression Screening Done: Yes Source: Developed by Drs. Uziel Raza, Loretta Julien, Chauncey Velasco and colleagues, with an educational yumiko from [employer]. Thrive Questionnaire Date Thrive assessed: 01/22/25 Currently or been in a relationship where the following occur: No concerns reported THRIVE Score: 0 JEROME-7 AMB Questionnaire JEROME-7 Date JEROME - 7 assessed: 01/22/25 Source: Developed by Drs. Uziel Raza, Chauncey Rush and colleagues, with an educational yumiko from [employer]. Review of Systems Const Denies chills, Reports fatigue, Denies fever(s) and Reports headache(s) (on and off) ENT Denies dysphagia, Denies dizziness, Denies otalgia, Reports headache(s) (on and off), Reports neck pain (chronic), Denies odynophagia and Denies sore throat Card Denies chest pain, Denies palpitations and Denies dyspnea Resp Denies chest congestion, Reports cough (on and off - coughs up minimal whitish phlegm at times), Denies dyspnea and Denies wheezing GI Denies abdominal pain, Denies constipation, Denies dysphagia, Denies diarrhea, Denies nausea, Denies odynophagia and Denies vomiting Denies difficulty voiding, Denies nocturia, Denies dysuria, Reports urinary incontinence (mostly when she coughs - ongoing for a while now) and Denies urinary urgency Musc Reports back pain (on and off) and Reports neck pain (chronic) Skin/Breast Reports rash (see HPI) Neuro Denies dizziness and Reports headache(s) (on and off) Psych Reports as per HPI and Reports mood swings Endo Reports as per HPI, Reports fatigue and Denies palpitations Aller/Immun Denies wheezing Physical exam (Primary Care) Vital Signs: Last Vital Signs Temp 97.3 F 04/24/25 11:50 Pulse 79 04/24/25 11:50 BP 110/72 04/24/25 11:50 Pulse Ox 98 04/24/25 11:50 Oxygen Delivery Method Room Air 04/24/25 11:50 BMI result Body Mass Index 29.8 Tobacco/Smoking Status: Tobacco use Status Tobacco use date assessed 04/24/25 04/24/25 11:58 Patient Tobacco Use Status Former Tobacco user 04/24/25 11:58 e-Cigarette/Vaping Use Former Use 04/24/25 11:58 Depression Screening Interpretation: Negative Thrive Assessment: Date of Thrive Assessment Date Thrive assessed 01/22/25 04/24/25 11:58 Currently or been in a relationship where the following occur: No concerns reported Const General: no acute distress and alert HENMT Ears: TM's normal bilaterally and EAC's normal Throat: Yes posterior oropharynx normal and Yes tonsils normal (no TP congestion) Neck Neck: No lymphadenopathy and Yes tender Thyroid: Thyroid normal Resp Auscultation: no crackles, no rales, rhonchi (occasional) throughout, no wheezes and diminished lung sounds (slightly) bilateral Cardio Rate: regular rate Rhythm: regular rhythm Heart sounds: no murmurs GI Palpation (GI): Soft to palpation and nontender Auscultation: normal bowel sounds General: Yes no CVA tenderness Back/Spine/Pelvis Back: no CVA tenderness Cervical Spine: Cervical spine tenderness Thoracic/Lumbar Spine: lumbar spinal tenderness Skin Lesions: no lesions Rashes: no rashes Extrem General: Yes no clubbing, cyanosis or edema Coding Level of Care Code Est Pt Level 4 (17819) Diagnoses Moderate persistent asthma without complication J45.40 Asthma complication type: uncomplicated Asthma persistence: persistent Asthma severity: moderate Nonintractable headache, unspecified chronicity pattern, unspecified headache type R51.9 Headache chronicity pattern: unspecified pattern Headache type: unspecified Intractability: not intractable Cervical disc disease M50.90 Midline low back pain without sciatica, unspecified chronicity M54.50 Back pain laterality: midline Chronicity: unspecified Sciatica presence: without sciatica Allergic rhinitis, unspecified seasonality, unspecified trigger J30.9 Allergic rhinitis seasonality: unspecified Allergic rhinitis trigger: unspecified Stress incontinence of urine N39.3 Urinary Incontinence type: stress incontinence Gastroesophageal reflux disease without esophagitis K21.9 Esophagitis presence: without esophagitis Insomnia, unspecified type G47.00 Insomnia type: unspecified Anxiety F41.9 Overweight (BMI 25.0-29.9) E66.3 Assessment & Plan Assessment & Plan (1) Asthma: Code(s): J45.909 - Unspecified asthma, uncomplicated Category: Medical Qualifiers: Asthma complication type: uncomplicated Asthma persistence: persistent Asthma severity: moderate Qualified Code(s): J45.40 - Moderate persistent asthma, uncomplicated Plan: Due to her recurrent coughing, will send her for chest x-rays for further evaluation Continue Symbicort 80-4.5 mcg 2 inhalations BID and Albuterol HFA 2 inhalations Q 6 hours PRN - Rx refilled Patient also uses Duoneb solution via nebulizer for updraft treatments Q 6 hours PRN (2) Headache: Code(s): R51.9 - Headache, unspecified Category: Medical Qualifiers: Headache chronicity pattern: unspecified pattern Headache type: unspecified Intractability: not intractable Qualified Code(s): R51.9 - Headache, unspecified Plan: Patient has been advised previously that her headaches are likely migraine headaches as she has (+) Hx of migraine Reinforced avoidance of any potential migraine triggers She was started on prophylactic Tx with Nortriptyline in the past but she apparently stopped taking this at some point Continue Fioricet 1 tablet TID PRN for now She has seen neurology in the past but has not been compliant with her follow- ups with neurology Have advised her that we will need to refer her to neurology again for further evaluation and management if her headaches persist or get worse (3) Cervical disc disease: Code(s): M50.90 - Cervical disc disorder, unspecified, unspecified cervical region Category: Medical Plan: Continue Tramadol 50 mg TID PRN She has again been sent for cervical spine x-rays for further evaluation at her previous appointment but she has not gotten this done Patient has been complaining of neck pain for years and has been sent for imaging studies for further evaluation multiple times but still has not managed to get any of these done at all Have advised patient that if she is really serious about her chronic pain and wants to find out what is causing these, then she really needs to get her imaging studies done when they are ordered - will REorder cervical spine x-rays again It seems that patient has never been serious about getting these checked out further and seems happy to just get some medications whenever she complains of pain Have advised patient to get her cervical spine x-rays done TEO or I will not continue to refill her Rx for pain indefinitely unless we have some results from her work ups available for review Patient was also reportedly going to physical therapy for her neck pain a few months ago, as referred by the walk-in clinic when she was seen there for her neck pain earlier this year but it does not look like she completed her PT sessions (4) Low back pain: Code(s): M54.50 - Low back pain, unspecified Category: Medical Qualifiers: Back pain laterality: midline Chronicity: unspecified Sciatica presence: without sciatica Qualified Code(s): M54.50 - Low back pain, unspecified Plan: Reinforced activity and weight-lifting restrictions Patient has also been complaining of recurrent low back pain for years and has been sent for imaging studies several times but has never been able to get any of these done at all - compliance has been a major issue for this patient (5) Allergic rhinitis: Code(s): J30.9 - Allergic rhinitis, unspecified Category: Medical Qualifiers: Allergic rhinitis seasonality: unspecified Allergic rhinitis trigger: unspecified Qualified Code(s): J30.9 - Allergic rhinitis, unspecified Plan: Continue Loratadine 10 mg QD PRN She was also previously referred for allergy testing and evaluation but she does not appear to have any appointments scheduled yet - patient does not wish to pursue this currently (6) Urinary incontinence: Code(s): R32 - Unspecified urinary incontinence Category: Medical Qualifiers: Urinary Incontinence type: stress incontinence Qualified Code(s): N39.3 - Stress incontinence (female) (male) Plan: Patient states that this occurs mostly when she coughs and has been going on for a while now We previously referred her to urology for further evaluation and management - she prefers to see urology in [place] if possible as it is closer to home for her - but she has not been seen by urology yet (7) Gastroesophageal reflux disease: Code(s): K21.9 - Gastro-esophageal reflux disease without esophagitis Category: Medical Qualifiers: Esophagitis presence: without esophagitis Qualified Code(s): K21.9 - Gastro-esophageal reflux disease without esophagitis Plan: Dietary restrictions reinforced Upper GI series done back in 2017 revealed (+) mild gastroesophageal reflux with mild prominence of the gastric rugal folds along the greater curvature of the stomach suggestive of gastritis She was referred to GI last year but patient failed to keep her appointment - compliance has been a significant issue for this patient Continue Omeprazole 20 mg QD (8) Insomnia: Code(s): G47.00 - Insomnia, unspecified Category: Medical Qualifiers: Insomnia type: unspecified Qualified Code(s): G47.00 - Insomnia, unspecified Plan: Sleep hygiene reinforced Continue Doxepin 10 mg Q HS PRN (9) Anxiety: Code(s): F41.9 - Anxiety disorder, unspecified Category: Medical Plan: Continue Doxepin 10 mg Q HS PRN (10) Overweight (BMI 25.0-29.9): Code(s): E66.3 - Overweight Category: Medical Plan: Reinforced diet/exercise as tolerated/lose weight although unclear if she is able to do the exercise part due to her recurrent neck and low back pain Plan Follow up in 3 months Have advised patient to get her follow-up labs done TEO - these are ordered again and printed out and handed to the patient and she is advised that she can just get these done at any lab facility that is close to home so transportation should not be an issue for her this time Orders: Orders Complete Blood Count Auto Diff 04/24/25 D64.9 - Anemia, unspecified UA CC w/rflx Micro + Cult 04/24/25 R30.0 - Dysuria Vitamin D 25-OH Total 04/24/25 E55.9 - Vitamin D deficiency, unspecified XR cervical spine 3V 04/24/25 M54.2 - Cervicalgia XR chest 2V 04/24/25 R05.9 - Cough, unspecified Comprehensive [place]. Panel Fast 04/24/25 E78.00 - Pure hypercholesterolemia, unspecified Lipid Panel 04/24/25 E78.00 - Pure hypercholesterolemia, unspecified TSH reflex Free T4 04/24/25 E78.00 - Pure hypercholesterolemia, unspecified Medications: New methocarbamol 500 mg PO TID PRN 30 tabs 0RF neck pain Refilled baclofen 5 mg PO TID 90 tabs 3RF budesonide-formoterol 80-4.5 mcg/actuation (Symbicort) 2 puffs inhalation BID 10.2 grams 3RF 30 days J45.40 - Moderate persistent asthma, uncomplicated hydrocortisone 2.5% 1 appl topical TID 454 grams 1RF itchy rash L28.2 - Other prurigo albuterol sulfate 90 mcg/actuation (Ventolin HFA) 2 puffs inhalation Q6-8H PRN 8.5 grams 3RF shortness of breath or wheezing 30 days J45.40 - Moderate persistent asthma, uncomplicated
[2025-04-24 11:50] VITALS: BP 110/72; PULSE 79; TEMP 36.3; O2SAT 98; BMI 29.8
--- OUTSIDE RECORDS SUMMARY | 2025-04-24 12:19 | XMS_ITS | Clinical Summary ---
Author Organization [facility] Address [address] [address] Phone Care Team Providers Care Art Handler Name Role Phone Unknown, Unknown Primary Care Provider Karenvai lable Allergies No known active allergies Medications albuterol 90 mcg/actuation inhaler 12/15/2021 Active LORazepam (ATIVAN) 0.5 MG tablet Take 0.5 mg by mouth 2 (two) times a day as needed. 12/07/2021 Active omeprazole (PRILOSEC) 20 MG capsule Take 20 mg by mouth daily. 09/15/2021 Active traMADoL (ULTRAM) 50 mg tablet TAKE 1 TABLET BY MOUTH FOUR TIMES DAILY NEEDED FOR PAIN 12/10/2021 Active Active Problems No known active problems Social History Tobacco Use Types Packs/Day Years Used Date Smoking Tobacco: Never Assessed Education Answer Date Recorded Are you interested in more education? Not on freddie e 01/13/2023 Are you concerned about learning? Not on file 01/13/2023 No 01/13/2023 No 01/13/2023 Digital Access Answer Date Recorded No 02/11/2023 No 02/11/2023 Reliable internet access at home? Not on file 02/11/2023 Device with a working camera? Not on file Comments Unknown Sex and Gender Information Value Date Recorded Sex Assigned at Not on file Legal Sex Female 10:29 PM EDT Gender Identity Not on file Sexual Orientation Not on file Last Filed Vital Signs Vital Sign Reading Time Taken Comments Blood Pressure 110/74 12/20/2021 6:01 PM EDT Pulse 80 12/20/2021 6:01 PM EDT Temperature 36.6 C (97.8 F) 12/20/2021 6:01 PM EDT Respiratory Rate 20 12/20/2021 6:01 PM EDT Oxygen Saturation 91% 12/20/2021 6:01 PM EDT Inhaled Oxygen Concentration - - Weight 66.7 kg (147 lb) 12/20/2021 6:01 PM EDT Height 157.5 cm (5' 2 ) 12/20/2021 6:01 PM EDT Body Mass Index 26.89 12/20/2021 6:01 PM EDT Plan of Treatment Health Maintenance Due Date Last Done Comments Adult Td,Tdap Booster 1982 DEPRESSION SCREENING 1994 SMOKING Hx and SMOKELESS TOB ACCO SCREENING 1995 HEPATITIS C SCREENING 02/03/2000 HIV ONE-TIME SCREENING (18-6 5 YEARS) 02/03/2000 PAP SMEAR 2003 MAMMOGRAM 2022 COVID-19 VACCINE (2 - 2023-2 5 season) 2024 11/12/2021 HEPATITIS A VACCINES Aged Out No long er eligible based on patient's age to complete this topic HIB VACCINES Aged Out No longer eligi ble based on patient's age to complete this topic MENINGOCOCCAL VACCINES (ACWY) Aged Out No longer eligible based on patient's age to complete this topic MENINGOCOCCAL VACCINES (B) Aged Out N o longer eligible based on patient's age to complete this topic PNEUMOCOCCAL VACCINES (0-49 years) Aged Out No longer eligible based on patient's age to complete this topic Medical Devices Not on file Insurance [employer] MEDICARE PART A & B [place] B Member Subscriber Plan / Payer (Ef fective 2011-Present) Name:Alia Dias Member ID:[id number] Relation to Subscriber:Self Name:Alia Dias Subscriber ID:[id number] Payer ID:[id number] Group ID:Not on file Type:Medicare Address: [employer] [address] [place] [phone] [place] [facility] MEDICARE PART A & B [facility] MEDICARE PART A & B Care Teams Art Handler Relationship Specialty Start Date End Date Unknown, Unknown, PCP - General 12/20/21 Additional Source Comments The information contained in this document represents components of the legal health record. It is not the complete legal health record.[facility]
--- OUTSIDE RECORDS SUMMARY | 2025-04-24 12:19 | XMS_ITS | Clinical Summary ---
Author Organization [facility] Address [address] [place] [address] Phone Care Team Providers Care Boom Truck Driver Name Role Phone Physician, No Pcp Primary [...] 74 08/12/2024 4:38 PM EST Temperature 36.8 C (98.2 F) 08/12/2024 4:38 PM EST Respiratory Rate 16 08/12/2024 4:38 PM EST [...] 5 Years) and At-Risk Patients (6 to 49 Years) (1 of 2 - PCV) 2001 Cervical Cancer Screening: P ap Smear 2003 Cholesterol Screening (Lipid Panel) 08/16/2022 HIV Screening 08/16/2022 Hepatitis C Screening 08/16/2022 Medicare Annual Wellness Visit 08/16/2022 Social Influencers of Health Screening 08/16/2022 COVID-19 Vaccine (3 - 2023-2 5 season) 2024 01/25/2023, 11/12/2021 Depression Screening 09/18/2024 Influenza Vaccine (#1) 2025 HIB Vaccines Aged Out No longer [...] currently active code status orders. Care Teams Boom Truck Driver Relationship Specialty Start Date End Date Physician, No Pcp PCP - General 08/11/24
== END 2025-04-24 12:22 | disposition home or self-care (01) ==
LOC: HO.HMCH 11:46
PROVIDERS: PCP Internal Medicine; Visit Provider Internal Medicine
DX: J45.40 Moderate persistent asthma, uncomplicated (principal); R51.9 Headache, unspecified; M50.90 Cervical disc disorder, unspecified, unspecified cervical region; M54.50 Low back pain, unspecified; J30.9 Allergic rhinitis, unspecified; N39.3 Stress incontinence (female) (male); K21.9 Gastro-esophageal reflux disease without esophagitis; G47.00 Insomnia, unspecified; F41.9 Anxiety disorder, unspecified; E66.3 Overweight

== ENCOUNTER → 2025-04-24 11:46 | Outpatient (BNVA) | payer MEDICARE, MEDICAID, SELFPAY | PROVIDERS: PCP Internal Medicine; Visit Provider Internal Medicine | DX: J45.40 Moderate persistent asthma, uncomplicated (principal); R51.9 Headache, unspecified; M54.50 Low back pain, unspecified; J30.9 Allergic rhinitis, unspecified; N39.3 Stress incontinence (female) (male); K21.9 Gastro-esophageal reflux disease without esophagitis; G47.00 Insomnia, unspecified; F41.9 Anxiety disorder, unspecified; E66.3 Overweight; Z68.29 Body mass index [BMI] 29.0-29.9, adult; Z71.3 Dietary counseling and surveillance | CPT/HCPCS: 99212 ==